=== PATIENT | male | born 1955 | race Caucasian/White ===

== ENCOUNTER → 2017-04-30 | Outpatient (CLI) | payer BC ==
[~2017-04-30] MED LIST: ASPI-113 PO; CALCTAB7 PO; CHOL100010 PO; CHOL1TAB46 PO; DOCU-94 PO; LISI-461 PO; LPR25 PO; LSN20 PO; NAPR-1169 PO; SERT50TA PO; SIMV80TA2 PO; TYLOTC500 PO; ZOLP5TAB PO
[2017-04-30 12:59] LABS: BASO % 0.8 %; BASO ABS # 0.07 K/uL (0-0.2); COMPLETE YES; EOS % 1.9 %; HEMATOCRIT 45.6 % (42-52); IG% 0.5 %; LYMPH % 24.9 %; MEAN CELL VOLUME 90.5 fL (80-100); MEAN CORPUSCULAR HEMOGLOBIN 30.8 pg (25-34); MEAN PLATELET VOLUME 10.3 fL (7.4-10.4); MONO % 7.1 %; NEUT % 64.8 %; PLATELET COUNT 261 K/uL (130-400); RED BLOOD COUNT 5.04 M/uL (4.7-6.1); WHITE BLOOD COUNT 8.45 K/uL (4.8-10.8)
[2017-04-30 15:42] LABS: CALCIUM 9.4 mg/dl (8.5-10.1)
[2017-04-30 15:43] LABS: ALT/SGPT 45 U/L (12-78); AST/SGOT 28 U/L (15-37); BLOOD UREA NITROGEN 20 mg/dl (7-18); BUN/CREATININE RATIO 13.9 (10-20); CARBON DIOXIDE 24 mmol/L (21-32); CHLORIDE 107 mmol/L (98-107); CHOLESTEROL 167 mg/dl (0-200); GLUCOSE 85 mg/dl (70-99); POTASSIUM 4.2 mmol/L (3.5-5.1); SODIUM 138 mmol/L (136-145); TRIGLYCERIDES 245 mg/dl (0-150); VERY LOW DENSITY LIPOPROT CALC 49 mg/dl
[2017-04-30 15:46] LABS: ALB/GLOB RATIO 1.1 (0.9-2); ALKALINE PHOSPHATASE 63 U/L (45-117); CHOLESTEROL/HDL RATIO 3.9; HDL CHOLESTEROL 43 mg/dl
== END | disposition home or self-care (01) ==
LOC: C.LABSPEC 12:20
PROVIDERS: ATTEND Internal Medicine
DX: I25.10 Atherosclerotic heart disease of native coronary artery without angina pectoris (principal); E78.5 Hyperlipidemia, unspecified; I10 Essential (primary) hypertension; E55.9 Vitamin D deficiency, unspecified

== ENCOUNTER → 2017-11-12 | Day surgery (SDC) | payer BC ==
[2017-11-03 08:25] VITALS: Ht 180.3 cm; Wt 97.7 kg
--- NOTE | 2017-11-08 22:05 | History and Physical ---
History & Physical Date of Service Nov 08, 2017. History & Physical ADMISSION DATE: 11/12/2017. Scheduled for left cataract surgery as an outpatient CHIEF COMPLAINT: 61-year-old male scheduled to undergo a left cataract surgery in the surgical center on 11/12/2060 PRESENT ILLNESS: patient with multiple medical problems including coronary artery disease, arterial hypertension, hyperlipidemia, osteoporosis, vitamin D deficiency. He has been diagnosed with cataract in the left eye. He has had a right cataract surgery in the past. Overall he is doing well. He denied any headache. No dizziness. No lightheadedness. Decreased vision left eye. No earache sore throat or neck pain. Denied any chest pain pressure or tightness. No shortness of breath. No cough. He still smokes a few cigarettes a day maybe 3 or 4 cigarettes every day. No abdominal pain no nausea no vomiting. no problems with his bowel movements. No problem urinating. No pain in his back or extremities. No ankle edema. PAST MEDICAL HISTORY: * wisdom teeth extraction in the remote past * Coronary artery disease. He had an inferolateral myocardial infarction in October of 2009. Cardiac catheterization showed 100% occlusion of his obtuse marginal artery. The thrombus was aspirated. A bare metal stent was placed. His cardiac status has been stable * Arterial hypertension. Long-standing. Treated. First diagnosed approximately 2006. * Hypercholesterolemia. Long-standing. Treated. * Degenerative disc disease of the lumbar spine. He presented with a right sciatica. He was diagnosed with a herniated L5-S1 disc. He did see Dr. Gaytan. No surgery was indicated. He did receive epidural injections * Fracture of the right distal femur after a fall on 10/27/2002 * Diverticulosis with perforation in October of 2012. He was in a septic shock. Acute renal failure. Transferrin to [facility]. Had surgery. Had colostomy which was later on taking down * Arthroscopic surgery left knee in July of 2014. He had chondromalacia and insufficiency fracture of the distal femur. * Osteoporosis * Severe vitamin D deficiency SOCIAL HISTORY: he is . No children. He smoked one pack per day for about 30 years. He stopped when he had his myocardial infarction. But again he started smoking a few cigarettes per day. Occasional alcoholic beverage. He does drink coffee but not excessively. No drug use. He is retired. 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 FAMILY HISTORY: His father age 76 had Parkinson's disease and arterial hypertension. His mother in her 70s. He has one brother. ALLERGIES: Intolerance to codeine with gastrointestinal upset CURRENT MEDICATIONS: * lisinopril 10 mg daily * Metoprolol tartrate 25 mg twice a day * Aspirin 325 mg daily * Lipitor 80 mg daily * Sertraline 50 mg daily * Vitamin D 5000 international unit daily * Ambien 5 mg if needed for insomnia * Colace if needed for constipation REVIEW OF SYSTEMS: as noted above PHYSICAL EXAMINATION: GENERAL : Well developed. Well nourished. No acute distress.weight 216.8 pounds , height 71.5 inches, BMI 29.82. VITAL SIGNS : Blood Pressure : 126/70, pulse 72, temperature 97.6. SKIN : Warm and dry. No rash.Multiple skin tags HEENT :He wears glasses. He is supposed to right cataract surgery. Scheduled for left cataract surgery NECK : Supple. No adenopathy. No thyromegaly. No JVD. Normal carotid pulses. No carotid bruit. CHEST : Normal HEART: Regular heart sounds without any murmur rub or gallop. PMI not displaced. LUNGS: Clear. Normal breath sounds. ABDOMEN: Soft nontender. No organomegaly or masses. Good bowel sounds.surgical scars BACK: No spine or CVA tenderness. BACK: No spine or CVA tenderness. EXTREMITIES : No edema clubbing or cyanosis. No joint or muscle tenderness. absent left dorsalis pedis pulse. Decreased right dorsalis pedis pulse. Excellent posterior tibialis pulses NEUROLOGICAL EXAMINATION: Alert and oriented. No deficit. ASSESSMENT: * cataract left eye. Scheduled for surgery * Coronary artery disease. Stable * Arterial hypertension * Hyperlipidemia * Osteoporosis * Vitamin D deficiency PLAN: he is doing quite well. His cardiac status is stable. His blood pressure is under control. He has no limitations. I do not see any contraindication for his anticipated cataract surgery as scheduled
[~2017-11-12] VITALS: Ht 180.3 cm; Wt 97.7 kg
[~2017-11-12] MED LIST changes: +500ML BSS 0.3ML EPI 1:1000PF IRRIG ONE; +ACETAMINOPHEN 325 MG TAB PO PRN; +AMVISC PLUS 0.8ML SYRINGE INT OCU ONE; +ATROPINE SULFATE 0.1 MG/ML 5ML SYR IV PRN; +BSS FLUSH ONE; -CALCTAB7 PO; -CHOL100010 PO; +EpHEDrine SULFATE INJ 50 MG/ML AMP IV PRN; +EpINEphrine INJ 1MG/ML AMP 1 MG/ML AMP ONE; +LACTATED RINGER'S 1000ML 500 ML IV SCH; +LIDOCAINE 3.5% OPH GEL PER APPLICATION CHARGE ONE; +LIDOCAINE HCL 1% MPF 2 ML VIAL ONE; -LSN20 PO; +MIDAZOLAM HCL 1 MG/ML 2ML VIAL ONE; +OCUCOAT 1 ML SOLN IO ONE; +ONDANSETRON INJ 2 MG/ML 2 ML VIAL IV PRN; +POVIDONE-IODINE OP SOLN 30 ML BTL ONE; +PROPARACAINE 0.5% OP SOLN PER DROP CHARGE OPL SCH; +TOBRAMYCIN/DEXAMETHASONE OPH OINT PER APPLN CHARGE ONE; -TYLOTC500 PO
[2017-11-12] MEDS: PHENYLEPHRINE HCL 2.5% OP SOLN PER DROP CHARGE OPL SCH ×2 (10:12→10:15)
[2017-11-12] MEDS: TROPICAMIDE 1% OP SOLN PER DROP CHARGE OPL SCH ×2 (10:12→10:16)
[2017-11-12] MEDS: CYCLOPENTOLATE HCL 1% OP SOLN PER DROP CHARGE OPL SCH ×2 (10:13→10:17)
[2017-11-12] MEDS: KETOROLAC 0.5% OP SOLN PER DROP CHARGE OPL SCH ×2 (10:14→10:17)
[2017-11-12] MEDS: GATIFLOXACIN OP SOLN PER DROP CHARGE OPL SCH ×2 (10:14→10:18)
--- NOTE | 2017-11-12 10:20 | History & Physical Bridge - SC ---
H&P Re-Evaluation Bridge Note: I have examined the patient, reviewed the History & Physical and in the interval since the performance of the History & Physical I have noted the following changes of clinical significance: Diagnosis: Left Cataract Procedure: Left Cataract Removal with Lens Implant No changes noted
--- NOTE | 2017-11-12 11:14 | Discharge Instructions-SurgCtr ---
Discharge Instructions Date of Service Nov 12, 2017. Visit Reason for Visit: Cataract Left Eye Discharge Discharge Diagnosis / Problem: cataract Discharge Goals Goal(s): Improve function Activity Recommendations Activity Limitations: per Instructions/Follow-up section Anesthesia . Post Anesthesia Instructions: If you have had General Anesthesia or IV Sedation: * Do not drive today. * Resume driving when surgeon permits. * Do not make important decisions or sign legal documents today. * Call surgeon for: 1. Temperature elevations greater than 101 degrees F. 2. Uncontrollable pain. 3. Excessive bleeding. 4. Persistent nausea and vomiting. 5. Medication intolerance (nausea, vomiting or rash). * For nausea and vomiting use only clear liquids such as: tea, soda, bouillon until nausea subsides, then gradually increase diet as tolerated. * If you have any concerns or questions, call your surgeon's office. If physician is unavailable and it is an emergency, call 911 or go to the nearest emergency room. . Diet Recommendations Home Diet: resume previous diet Procedures Procedures Performed: Left Cataract Phacoemulsification With Intraocular Lens Implant Pending Studies Studies pending at discharge: no Medical Emergencies . Who to Call and When: Medical Emergencies: If at any time you feel your situation is an emergency, please call 911 immediately. . Non-Emergent Contact Non-Emergency issues call your: [employer] . . "Provider Documentation" section prepared by Kobe Reagan. .
--- NOTE | 2017-11-12 11:15 | [facility] Operative Report ---
Operative Report Date of Service Nov 12, 2017. Operative Report 1. PREOPERATIVE DIAGNOSIS: Cataract of the left eye. 2. POSTOPERATIVE DIAGNOSIS: Same. 3. PROCEDURE: Phacoemulsification with intraocular lens implantation of the left eye. SURGEON: Dr. Kobe Reagan. ANESTHESIA: Topical Lidocaine gel, 1% Non- Preserved intracameral Lidocaine, and monitored intravenous sedation. INDICATIONS FOR THE PROCEDURE: The patient is a 61 - year-old male with a history of cataract of the left eye causing significant visual impairment. The details of the proposed procedure were explained to the patient who asked appropriate questions and following discussion of all risks, benefits and alternatives agreed to have the procedure done. 4. OPERATION AND FINDINGS: DESCRIPTION OF PROCEDURE: After informed consent was obtained, the patient was brought to the Operating Room at the [facility]. The patient was placed in a supine position and then the left eye was prepped and draped in the usual sterile fashion for intraocular surgery. A drop of topical Lidocaine gel was placed in the operative eye. A wire lid speculum was then placed in the fornices. A corneal paracentesis was then created temporally. The Non-Preserved Lidocaine was then instilled into the anterior chamber. The anterior chamber was then pressurized with viscoelastic. A 2.0 mm clear corneal incision was then created temporally. A cystotome was inserted into the anterior chamber and used to create a tear in the anterior lens capsule. This capsular tear was then used to create a small flap and the flap was dragged in a counterclockwise direction in order to create a continuous curvilinear capsulorrhexis. Hydrodissection was accomplished with balanced salt solution. Phacoemulsification of the lens nucleus was then performed in a standard [id number] technique. The phaco time was 11 seconds with an average power of 12 %. The remaining cortical material was removed using irrigation aspiration. The capsular bag was then filled with viscoelastic. A B[employer]ch [employer] Lomb MI60L +15.0 diopters lens was then loaded into the injector and injected into the capsular bag. The remaining viscoelastic was removed with the irrigation aspiration handpiece. The wound was hydrated and then checked and found to be watertight. The intraocular pressure was checked and found to be adequate. The wire lid speculum was removed and the patient's face was cleaned and dried. TobraDex ointment was placed in the inferior fornix. The patient was discharged to the Recovery Room having tolerated the procedure well. There were no complications. The patient will be seen tomorrow in the office for follow-up. I attest to the content of the Intraoperative Record and any orders documented therein. Any exceptions are noted below.
--- NOTE | 2017-11-12 11:34 | Anesthesia Progress Nt - [facility] ---
Anesthesia Post Op Note Date & Time Nov 12, 2017 at 11:34 Vital Signs Pain Intensity: 0 Vital Signs Past 12 Hours Date Time Temp Pulse Resp B/P (MAP) Pulse Ox O2 Delivery O2 Flow Rate FiO2 11/12/17 11:17 36.4 54 16 141/95 (110) 95 Room Air 11/12/17 10:00 36.7 53 20 118/83 (95) 96 Room Air Notes Mental Status: alert / awake / arousable, participated in evaluation Pt Amnestic to Procedure: Yes Nausea / Vomiting: adequately controlled Pain: adequately controlled Airway Patency, RR, SpO2: stable & adequate BP & HR: stable & adequate Hydration State: stable & adequate Anesthetic Complications: no major complications apparent
[2017-11-12 11:52] VITALS: BP 144/84; PULSE 61; TEMP 36.6; O2SAT 65
== END | disposition home or self-care (01) ==
LOC: X.SURG 09:40
PROVIDERS: ATTEND Ophthalmology
DX: H26.9 Unspecified cataract (principal); M51.36 Other intervertebral disc degeneration, lumbar region; I25.10 Atherosclerotic heart disease of native coronary artery without angina pectoris; I10 Essential (primary) hypertension; E78.5 Hyperlipidemia, unspecified; E78.00 Pure hypercholesterolemia, unspecified; M81.0 Age-related osteoporosis without current pathological fracture; E55.9 Vitamin D deficiency, unspecified; I25.2 Old myocardial infarction; F17.200 Nicotine dependence, unspecified, uncomplicated; Z82.49 Family history of ischemic heart disease and other diseases of the circulatory system; Z79.82 Long term (current) use of aspirin; Z79.899 Other long term (current) drug therapy

== ENCOUNTER → 2018-03-22 | Outpatient (CLI) | payer BC ==
[~2018-03-22] MED LIST changes: -500ML BSS 0.3ML EPI 1:1000PF IRRIG ONE; -ACETAMINOPHEN 325 MG TAB PO PRN; -AMVISC PLUS 0.8ML SYRINGE INT OCU ONE; -ATROPINE SULFATE 0.1 MG/ML 5ML SYR IV PRN; -BSS FLUSH ONE; -EpHEDrine SULFATE INJ 50 MG/ML AMP IV PRN; -EpINEphrine INJ 1MG/ML AMP 1 MG/ML AMP ONE; -LACTATED RINGER'S 1000ML 500 ML IV SCH; -LIDOCAINE 3.5% OPH GEL PER APPLICATION CHARGE ONE; -LIDOCAINE HCL 1% MPF 2 ML VIAL ONE; -MIDAZOLAM HCL 1 MG/ML 2ML VIAL ONE; -OCUCOAT 1 ML SOLN IO ONE; -ONDANSETRON INJ 2 MG/ML 2 ML VIAL IV PRN; -POVIDONE-IODINE OP SOLN 30 ML BTL ONE; -PROPARACAINE 0.5% OP SOLN PER DROP CHARGE OPL SCH; -TOBRAMYCIN/DEXAMETHASONE OPH OINT PER APPLN CHARGE ONE
== END | disposition home or self-care (01) ==
LOC: C.LABSPEC 17:23
PROVIDERS: ATTEND Internal Medicine
DX: L02.212 Cutaneous abscess of back [any part, except buttock and flank] (principal)

== ENCOUNTER 2019-02-02 08:27 | Inpatient (IN) ==
[2019-02-02] MEDS ORDERED: LACTATED RINGER'S 1,000 ML IV SCH (08:45)
[2019-02-02 08:50] LABS: Basophils # (auto) 0.05 K/uL (0-0.2); Basophils % (auto) 0.7 %; Eosinophils # (auto) 0.08 K/uL (0-0.5); Eosinophils % (auto) 1.2 %; Hematocrit (blood only) 47.5 % (42-52); Hemoglobin 16.2 g/dL (14.0-18.0); Immature Granulocytes # (auto) 0.05 K/uL (0.00-0.02); Immature Granulocytes % (auto) 0.7 %; Lymphocytes # (auto) 1.67 K/uL (1.2-3.4); Lymphocytes % (auto) 24.9 %; Mean Corpuscular Hgb Conc 34.1 g/dL (32-36); Mean Corpuscular Volume 90.3 fL (80-100); Mean Platelet Volume 9.8 fL (7.4-10.4); Monocytes # (auto) 0.53 K/uL (0.11-0.59); Monocytes % (auto) 7.9 %; Neutrophils # (auto) 4.33 K/uL (1.4-6.5); Neutrophils % (auto) 64.6 %; Platelet Count 204 K/uL (130-400); RDW Coefficient of Variation 13.3 % (11.5-14.5); RDW Standard Deviation 43.8 fL (36.4-46.3); Red Blood Count 5.26 M/uL (4.7-6.1); White Blood Count 6.71 K/uL (4.8-10.8)
[2019-02-02] MEDS: HYDROmorphone INJ 0.5 MG/0.5 ML SYR IV PRN ×6 (08:51→22:45)
[2019-02-02 09:06] LABS: INR 1.1 (0.9-1.1); Partial Thromboplastin Time 26.6 Seconds (21.0-31.0); Prothrombin Time 11.4 Seconds (9.0-12.0)
[2019-02-02 09:08] LABS: BUN Creatinine Ratio 15.1 (10-20); Calcium 9.5 mg/dl (8.5-10.1); Creatinine Clr Calc Pharmacy 71.8 ml/min; Est GFR (African American) 67.5; Est GFR (Non-African American) 58.2; Potassium 4.1 mmol/L (3.5-5.1)
--- NOTE | 2019-02-02 09:12 | XRay Report ---
XR chest 1V portable CLINICAL HISTORY: pre op COMPARISON STUDY: 11/15/2012 FINDINGS: The bones soft tissues and hemidiaphragms are normal. The cardiomediastinal silhouette is n ormal. The lungs are clear. The pulmonary vasculature is normal. IMPRESSION: Negative chest. The above report was generated using voice recognition software. It may contain grammatical, syntax or spelling errors. Electronically signed by: Semaj Gutierrez M.D. 02/02/2019 9:11 AM
--- NOTE | 2019-02-02 09:14 | XRay Report ---
XR hip RT 2-3V w pelvis CLINICAL HISTORY: s/p fall, prior femur frx trauma. Pain. COMPARISON: 10/27/2012 DISCUSSION: Probable intertrochanteric fracture right hip. Potential linear extension to the proximal femoral shaft. No evidence of dislocation or acetabular protrusion. There is no evidence for soft ti ssue swelling. IMPRESSION: Intertrochanteric fracture right hip with probable extension to the proximal femoral shaf t. No evidence for dislocation or acetabular protrusion. The above report was generated using voice recognition software. It may contain grammatical, syntax or spelling errors. Electronically signed by: Semaj Gutierrez M.D. 02/02/2019 9:12 AM
--- NOTE | 2019-02-02 10:09 | Emergency Department Note ---
Entered by Humaira Alvarez acting as a scribe for History of Present Illness General Chief complaint: Fall Source: patient History of Present Illness Provider complaint: fall Onset (ago): hour(s) (0730 this morning) Location: lower extremity and right Quality: + other (fall) Associated symptoms: + other (right hip pain); no syncope The patient is a 63 year old white male w/ PMHx of CAD, a heart attack, a colostomy, and HTN who presents to the ED w/ CC of a fall occurring about 0730 this morning. The patient states that he slipped on ice outside on ground level. He states that he fell on his right side and reports having hip pain. He reports a history of a broken right femur 6 years ago. The patient states that he is able to move his toes. He denies hitting his head or passing out. The patient reports a history of a heart attack 10 years ago and had 1 stent placed. The patient states that he takes Aspirin and that he took it yesterday but not this morning. The patient states that he smokes. Home Medications Home Medications Medication Instructions Recorded Confirmed Type sertraline 50 mg PO QPM #0 tab 10/27/12 02/02/19 History aspirin 325 mg PO DAILY #0 tab 11/15/12 02/02/19 History metoprolol tartrate 25 mg PO BID #0 10/11/14 02/02/19 History naproxen 500 mg PO BID PRN #0 tab 10/11/14 02/02/19 History zolpidem 5 mg PO HS PRN #0 tab 10/11/14 02/02/19 History cholecalciferol (vitamin D3) 5,000 unit PO DAILY #0 11/03/17 02/02/19 History lisinopril 10 mg PO DAILY #0 11/03/17 02/02/19 History atorvastatin 80 mg PO HS 02/02/19 02/02/19 History Allergies Allergy/AdvReac Type Severity Reaction Status Date / Time No Known Allergies Allergy Verified 02/02/19 08:48 Past Med/Surg History Medical History Tobacco use Hx of fracture of femur Hx pulmonary embolism HLD (hyperlipidemia) HTN (hypertension) CAD (coronary artery disease) Closed intertrochanteric fracture of right femur (Acute) CAD (coronary artery disease) (Chronic) HTN (hypertension) (Chronic) Surgical History Hx of resection of small bowel Social History Preferred Language: Danish Communication Ability: Effective Candy Maker Required: No Beliefs That Will Affect Care: None Current Living Situation: Spouse current occupational status: retired Other Information That Helps Us Care for You: No Feels Safe at Home: Yes Safety Concerns: Feels Safe At This Time Smoking Status: Current every day smoker Hx Alcohol Use: No Hx Substance Use: No Review of Systems See HPI for pertinent positives & negatives. and A total of 10 systems reviewed and were otherwise negative Physical Exam Vital Signs Vital Signs - 24 hr 02/02/19 08:32 02/02/19 09:17 02/02/19 10:49 Temperature 36.7 C Temperature Source Oral Sepsis Recent Fever Within 48 Hours No Sepsis New/Unexplained Change in Mental Status No Sepsis Action Taken by Nursing No Action Required Pulse Rate 77 Pulse Rate [Left Finger] 65 66 Respiratory Rate 18 16 18 Blood Pressure 148/96 H Blood Pressure [Left Arm] 114/80 134/90 Blood Pressure Mean 113 Blood Pressure Mean [Left Arm] 91 104 Pulse Oximetry 97 92 96 Oxygen Delivery Method Room Air Room Air Room Air 02/02/19 12:04 Temperature Temperature Source Sepsis Recent Fever Within 48 Hours Sepsis New/Unexplained Change in Mental Status Sepsis Action Taken by Nursing Pulse Rate 75 Pulse Rate [Left Finger] Respiratory Rate Blood Pressure Blood Pressure [Left Arm] Blood Pressure Mean Blood Pressure Mean [Left Arm] Pulse Oximetry Oxygen Delivery Method GENERAL: Well appearing, well nourished, NAD, non-toxic. Wearing glasses. EYE EXAM: Normal conjunctiva. PERRL, no anisocoria and EOM's grossly intact w/o pain OROPHARYNX: Moist mucus membranes. HEAD: No deformity or tenderness to palpation. NECK: Supple, no nuchal rigidity, no adenopathy, non-tender. No signs of meningismus. LUNGS: Clear to auscultation bilaterally. Normal chest wall mechanics. HEART: Normal sinus rhythm, no MRG. CHEST: No deformity or tenderness to palpation. ABDOMEN: Abdomen soft, non-tender, no masses, no rebound or guarding. BACK: No CVA TTP. SKIN: No rashes and no bruising. UPPER EXTREMITIES: Upper extremities are grossly normal. No deformity or tenderness to palpation to the bilateral upper extremities. LOWER EXTREMITIES: No pitting edema. No calf pain. There is pain to the lateral aspect of the right hip. Unable to strengthen. SLIT distally. The hip is held in flexion. No deformity or tenderness to palpation of the left lower extremity. NEURO EXAM: AOx3, GCS 15, no gross deficit, follows commands. Moves all 4 extremities on command w/o issue Course 0836: Past medical records reviewed. The patient was evaluated in room A10, and a complete history and physical examination were performed. 0956: I discussed the patient's case with Dr. Gomez who said to admit the patient to Medicine and that he will probably go to the OR tomorrow at noon. 1002: I discussed the patient's case with Janice Quinonez who will evaluate the patient for further management. 1010: I updated the patient who verbalized agreement and understanding of the treatment plan. Consultations Consultation #1: Dr. Gomez Time: 09:56 Consultation #2: Janice Quinonez Time: 10:02 Administered Medications Discontinued Medications Hydromorphone HCl (Dilaudid) 0.5 mg IV Q20M PRN PRN Reason: Severe Pain (Rating 7,8,9,10) Stop: 02/16/19 08:40 Last Admin: 02/02/19 09:15 Dose: 0.5 mg Documented by: [id number] Admin: 02/02/19 08:51 Dose: 0.5 mg Documented by: [id number] Lactated Ringer's (Lr) 1,000 mls @ 150 mls/hr IV .Q6H40M CASTILLO Stop: 03/04/19 08:44 Last Admin: 02/02/19 08:51 Dose: 150 mls/hr Documented by: [id number] Medical Decision Making Medical Records Attestation: I reviewed the patient's medical records. Home Medications Current Medication List: was personally reviewed by me Laboratory Data Attestation: I reviewed the patient's lab results. Result diagrams: 02/02/19 08:39 02/02/19 08:39 Lab Results 02/02/19 02/02/19 02/02/19 Range/Units 08:39 08:39 08:39 WBC 6.71 (4.8-10.8) K/uL RBC 5.26 (4.7-6.1) M/uL Hgb 16.2 (14.0-18.0) g/dL Hct 47.5 (42-52) % MCV 90.3 (80-100) fL MCH 30.8 (25-34) pg MCHC 34.1 (32-36) g/dL RDW Std Deviation 43.8 (36.4-46.3) fL RDW Coeff of Emmett 13.3 (11.5-14.5) % Plt Count 204 (130-400) K/uL MPV 9.8 (7.4-10.4) fL Immature Gran % (Auto) 0.7 % Neut % (Auto) 64.6 % Lymph % (Auto) 24.9 % Harmon % (Auto) 7.9 % Eos % (Auto) 1.2 % Baso % (Auto) 0.7 % Immature Gran # (Auto) 0.05 H (0.00-0.02) K/uL Neut # (Auto) 4.33 (1.4-6.5) K/uL Lymph # (Auto) 1.67 (1.2-3.4) K/uL Harmon # (Auto) 0.53 (0.11-0.59) K/uL Eos # (Auto) 0.08 (0-0.5) K/uL Baso # (Auto) 0.05 (0-0.2) K/uL PT 11.4 (9.0-12.0) Seconds INR 1.1 (0.9-1.1) APTT 26.6 (21.0-31.0) Seconds PTT Ratio 1.0 Sodium 138 (136-145) mmol/L Potassium 4.1 (3.5-5.1) mmol/L Chloride 105 (98-107) mmol/L Carbon Dioxide 25 (21-32) mmol/L Anion Gap 7.0 (3-11) BUN 20 H (7-18) mg/dl Creatinine 1.29 (0.6-1.4) mg/dl Est Cr Clr Drug Dosing 71.8 ml/min Est GFR ( Amer) 67.5 Est GFR (Non-Af Amer) 58.2 BUN/Creatinine Ratio 15.1 (10-20) Glucose 111 H (70-99) mg/dl Calcium 9.5 (8.5-10.1) mg/dl Blood Type Antibody Screen 02/02/19 Range/Units 09:04 WBC (4.8-10.8) K/uL RBC (4.7-6.1) M/uL Hgb (14.0-18.0) g/dL Hct (42-52) % MCV (80-100) fL MCH (25-34) pg MCHC (32-36) g/dL RDW Std Deviation (36.4-46.3) fL RDW Coeff of Emmett (11.5-14.5) % Plt Count (130-400) K/uL MPV (7.4-10.4) fL Immature Gran % (Auto) % Neut % (Auto) % Lymph % (Auto) % Harmon % (Auto) % Eos % (Auto) % Baso % (Auto) % Immature Gran # (Auto) (0.00-0.02) K/uL Neut # (Auto) (1.4-6.5) K/uL Lymph # (Auto) (1.2-3.4) K/uL Harmon # (Auto) (0.11-0.59) K/uL Eos # (Auto) (0-0.5) K/uL Baso # (Auto) (0-0.2) K/uL PT (9.0-12.0) Seconds INR (0.9-1.1) APTT (21.0-31.0) Seconds PTT Ratio Sodium (136-145) mmol/L Potassium (3.5-5.1) mmol/L Chloride (98-107) mmol/L Carbon Dioxide (21-32) mmol/L Anion Gap (3-11) BUN (7-18) mg/dl Creatinine (0.6-1.4) mg/dl Est Cr Clr Drug Dosing ml/min Est GFR ( Amer) Est GFR (Non-Af Amer) BUN/Creatinine Ratio (10-20) Glucose (70-99) mg/dl Calcium (8.5-10.1) mg/dl Blood Type A Negative Antibody Screen NEGATIVE Imaging Data Radiologist's Impression: Radiology results as stated below per my review and the radiologist's interpretation: XR hip RT 2-3V w pelvis CLINICAL HISTORY: s/p fall, prior femur frx trauma. Pain. COMPARISON: 10/27/2012 DISCUSSION: Probable intertrochanteric fracture right hip. Potential linear extension to the proximal femoral shaft. No evidence of dislocation or a cetabular protrusion. There is no evidence for soft tissue swelling. IMPRESSION: Intertrochanteric fracture right hip with probable extension to the proximal femoral shaft. No evidence for dislocation or acetabular protrusion. The above report was generated using voice recognition software. It may contain grammatical, syntax or spelling errors. Electronically signed by: Semaj Gutierrez M.D. 02/02/2019 9:12 AM XR chest 1V portable CLINICAL HISTORY: pre op COMPARISON STUDY: 11/15/2012 FINDINGS: The bones soft tissues and hemidiaphragms are normal. The car diomediastinal silhouette is normal. The lungs are clear. The pulmonary vasculature is normal. IMPRESSION: Negative chest. The above report was generated using voice recognition software. It may contain grammatical, syntax or spelling errors. Electronically signed by: Semaj Gutierrez M.D. 02/02/2019 9:11 AM ECG Data Attestation: I personally reviewed and interpreted this ECG as follows: Indication: other (trauma) Rate (beats per minute): 63 Rhythm: normal sinus Findings: + other (normal axis, normal intervals) and + T-wave inversion (in aVL) Blood Pressure Blood Pressure Findings: Normal blood pressure MDM Narrative The patient is a 63 year old white male w/ PMHx of CAD, a heart attack, a colostomy, and HTN who presents to the ED w/ CC of a fall occurring about 0730 this morning. Differential diagnosis: Etiologies such as fracture, dislocation, neurovascular compromise, compartment syndrome, soft tissue injury, as well as others were entertained. Patient was seen and evaluated the bedside. The patient did suffer medical fall approximate 1 hour prior to arrival. The patient does have a known history of CAD does take a full dose aspirin. The patient did fall somewhat to his right side. On exam the patient is held in flexion but has normal sensation distally. There is no other trauma. No pain to the head or neck area no deformity. No pain to the chest or abdomen. Patient did a blood work completed along with x-rays. The patient's x-rays show a femur fracture. Orthopedics was consulted with Dr. Moreira. Patient's blood work unremarkable. EKG does show T WI in aVL. Patient did not strike head or neck. Patient does have a right-sided intertrochanteric fracture. I did speak the on-call orthopedist who stated the patient would be scheduled for the OR tomorrow at noon. Subsequently, the hospitalist was paged. I did speak with the on-call physician assistant store manager operations who agreed to further evaluate treat the patient. The patient was admitted to the medicine service. Impression & Plan Closed intertrochanteric fracture of right femur, Fall, Encounter for smoking cessation counseling Discharge Plan Visit Data *Final* Discharge Date/Time: 02/02/19 11:16 Chief Complaint: Fall ED Provider: Phill Palencia Discharge Problem: Closed intertrochanteric fracture of right femur, Fall, Encounter for smoking cessation counseling Patient Disposition: Admitted As Inpatient Discharge Instructions Interventions: ED Discharge Assessment Last Done: 02/02/19 11:16 The scribe's documentation has been prepared under my direction and personally reviewed by me in its entirety. I confirm that the note above accurately reflects all work, treatment, procedures, and medical decision making performed by me.
--- NOTE | 2019-02-02 10:39 | History & Physical Report ---
Date of Service February 02, 2019 Assessment & Plan (1) Status post closed fracture of right femur: - Admit to med surg with tele - Pain management, bowel regimen, dvt ppx ordered. - Consult orthopedics, Dr. Anderson - plans on Surgery on 02/03/19 - Last oral intake was breakfast with coffee, allow diet for now, NPO after midnight. Pt had LR IV in the ER. - Follow am CBC, coags - Cardiac Risk index of 0.9% (2) CAD (coronary artery disease): - Hx of care metal stent to the Left circumflex s/p STEMI in 2008. Follows with [facility] cardiology - Continue asa 325 mg daily, lisinopril 10 mg daily, metoprolol tartrate 25 mg PO BID, atorvastatin 80 mg HS - Cardiac risk low for surgical procedure - Encourage cessation of tobacco smoking. - No formal exercise program. (3) HTN (hypertension): - Continue antihypertensives. (4) HLD (hyperlipidemia): - Cont statin therapy as above. (5) Hx of fracture of femur: - 6 yrs ago sustained R femoral fx, repaired. (6) Hx pulmonary embolism: - 6 yrs ago following initial R femoral fracture. Teds and SCD to nonaffected leg. (7) Hx of resection of small bowel: - 6 yrs ago s/p femoral fracture. Stable. (8) Tobacco use: - Smoking currently about 1 ppd since age 17. Encourage cessation. Will order nicotine patch. - Increases risk of osteoporosis with intertrochanteric note as above. (9) DVT prophylaxis: Teds and SCDs to nonaffected leg, no chemical ppx in the setting of surgical procedure. History of Present Illness Chief Complaint: R intertrochanteric hip fracture Primary Care Provider: George Henry MD This is a 63 yo M with PMHx of CAD with stent x 1, HTN, HLD, current tobacco use with 15 cig daily since age 17. Pt also with surgical hx of previous R femoral fracture and fixation, who subsequently suffered a PE and small bowel resection approximately 2-3 wks after initial femoral fracutre 6 years ago. Pt reports mechanical fall after slipping on ice this morning. He denies hitting his head, LOC or preceeding lightheadedness or dizziness. He has been feeling in his normal state otherwise. Pt walks daily with his dogs about 20 minutes, and has no difficulty climbing a flight of stairs. Allergies Allergy/AdvReac Type Severity Reaction Status Date / Time No Known Allergies Allergy Verified 02/02/19 08:48 Home Medications Home Medications Medication Instructions Recorded Confirmed Type sertraline 50 mg PO QPM #0 tab 10/27/12 02/02/19 History aspirin 325 mg PO DAILY #0 tab 11/15/12 02/02/19 History metoprolol tartrate 25 mg PO BID #0 10/11/14 02/02/19 History naproxen 500 mg PO BID PRN #0 tab 10/11/14 02/02/19 History zolpidem 5 mg PO HS PRN #0 tab 10/11/14 02/02/19 History cholecalciferol (vitamin D3) 5,000 unit PO DAILY #0 11/03/17 02/02/19 History lisinopril 10 mg PO DAILY #0 11/03/17 02/02/19 History atorvastatin 80 mg PO HS 02/02/19 02/02/19 History Past Med/Surg History Medical History Tobacco use Hx of fracture of femur Hx pulmonary embolism HLD (hyperlipidemia) HTN (hypertension) CAD (coronary artery disease) Closed intertrochanteric fracture of right femur (Acute) CAD (coronary artery disease) (Chronic) HTN (hypertension) (Chronic) Surgical History Hx of resection of small bowel Social History Preferred Language: Bhutanese Communication Ability: Effective Network Desktop Support Specialist Required: No Beliefs That Will Affect Care: None Current Living Situation: Spouse current occupational status: retired Other Information That Helps Us Care for You: No Feels Safe at Home: Yes Safety Concerns: Feels Safe At This Time Smoking Status: Current every day smoker Hx Alcohol Use: No Hx Substance Use: No Review of Systems Constitutional: no fever, no chills, no sweats and no fatigue Eyes: no diplopia and no worsening vision Ear, Nose, Mouth, Throat: no dizziness, no nasal discharge, no facial pain and no sore throat Respiratory: no cough, no dyspnea and no wheezing Cardiovascular: no chest pain, no palpitations, no lightheadedness and no syncope Gastrointestinal: no nausea, no vomiting and no constipation no diarrhea Genitourinary (Male): no dysuria, no urinary frequency, no urinary hesitancy and no hematuria Musculoskeletal: + joint pain (R hip improved after pain medication); no back pain, no swelling and no muscle weakness Integumentary: no rash, no lesions and no wounds Neurologic: no gait abnormality, no falls, no numbness, no dizziness and no syncope Psychiatric: no depression and no anxiety Endocrine: no fatigue Physical Exam Vital Signs (Past 24 Hours): Last Vital Signs Temp 36.7 C 02/02/19 08:32 Pulse 65 02/02/19 09:17 Resp 16 02/02/19 09:17 BP 114/80 02/02/19 09:17 Pulse Ox 92 02/02/19 09:17 Physical Exam: General: awake, alert, no apparent distress, +overweight Head: Normocephalic, atraumatic ENT: PERRL, EOMI, no pharyngeal exudate, mucous membranes moist Chest: Clear to auscultation, on room air, no adventitious breath sounds Cardiac: Regular rate and rhythm, no murmur, no JVD, normal peripheral pulses, good capillary refill Abdominal: NABS x 4 quadrants, soft, nontender to palpation, no rebound, guarding or tenderness Extremities: Normal inspection, no peripheral edema or erythema, calfs nontender to palpation Psych: Normal mood and affect Neuro: AAO x 3, strength decreased in the RLE with plantar flexion, sensation intact bilaterally in lower extremities. Otherwise no motor deficits, speech is clear. Results & Data Diagnostic Findings XR hip RT 2-3V w pelvis CLINICAL HISTORY: s/p fall, prior femur frx trauma. Pain. COMPARISON: 10/27/2012 DISCUSSION: Probable intertrochanteric fracture right hip. Potential linear ext ension to the proximal femoral shaft. No evidence of dislocation or acetabular protrusion. There is no evidence for soft tissue swelling. IMPRESSION: Intertrochanteric fracture right hip with probable extension to the proximal femoral shaft. No evidence for dislocation or acetabular protrusion. XR chest 1V portable CLINICAL HISTORY: pre op COMPARISON STUDY: 11/15/2012 FINDINGS: The bones soft tissues and hemidiaphragms are normal. The cardiomediastinal silhouette is normal. The lungs are clear. The pulmonary vasculature is normal. IMPRESSION: Negative chest. ECG Additional Comments: 02-FEB-2019 08:34:22 [facility] Normal sinus rhythm Normal ECG When compared with ECG of 18-AUG-2014 12:06, No significant change was found Vent. rate 63 BPM TX interval 202 ms QRS duration 84 ms QT/QTc 422/431 ms P-R-T axes 68 25 70 Code Status & VTE Plan Code Status Full Code Supervising Physician Co-Signing Physician Notes Pt seen/examined in conjunction with SHWETA Armas. Orders and plan of admission formulated with SHWETA. 63 y/o M Hx CAD/stent, HTN, HLD, avid smoker. Suffered a PE following surgery for a hip fracture previously. Suffered a mechanical fall on ice prior to arrival and sustained a R intertroch fracture. OE AAO x 3 S1,2 R CTAB NT, ND No CCE - pulses + No deficits P: Orthopedics consulted. He wlks daily and can ascend stairs without difficulty but does have a CAD histroy and continues to smoke. RCRI is tecnically 0.9% - he can likely proceed to the OR without additional workup. He should be anticoagulated JOHNATHAN after surgery considering hi postop DVT previously Cont Atorvastatin and Metoprolol - hold Lisinopril AM - NPO, IVF, hip admission protocol
[2019-02-02] MEDS ORDERED: NAPROXEN 250 MG TAB PO PRN (11:49)
[2019-02-02] MEDS ORDERED: MoRPHine SULFATE 4 MG/ML 1 ML CARP\\VIAL IV PRN (11:49)
[2019-02-02] MEDS ORDERED: MAGNESIUM HYDROXIDE SUSP 30 ML UDC PO PRN (11:49)
[2019-02-02] MEDS ORDERED: NALOXONE HCL 0.4 MG/1 ML VIAL/CARP IV PRN (11:49)
[2019-02-02] MEDS ORDERED: ZOLPIDEM TARTRATE 5 MG TAB PO PRN (11:49)
[2019-02-02] MEDS ORDERED: SOD PHOSPHATE/SOD BIPHOSPHATE ENEMA 132 ML BTL PR PRN (11:49)
[2019-02-02] MEDS ORDERED: ONDANSETRON INJ 2 MG/ML 2 ML VIAL IV PRN (11:49)
[2019-02-02] MEDS ORDERED: BISACODYL 10 MG SUPP PR PRN (11:49)
[2019-02-02] MEDS ORDERED: CLINDAMYCIN 900 MG in DEXTROSE 5% 100 ML IV SCH (12:35)
[2019-02-02] MEDS: ACETAMINOPHEN 500 MG TAB PO SCH ×2 (12:57→20:25)
[2019-02-02] MEDS: NICOTINE 14 MG/24 HR PATCH TD SCH (13:17)
[2019-02-02] MEDS: OXYCODONE HCL IR 5 MG TAB (IMMEDIATE RELEASE) PO PRN ×2 (13:18→20:26)
--- NOTE | 2019-02-02 14:13 | Anesthesiology Consultation ---
Date of Service February 02, 2019 Assessment & Plan Chart Review Chart Review: Acceptable Risk for Surgery and Patient NOT seen in Pre Admission Testing Consults Requested none ASA ASA4 Proposed Anesthesia Anesthesia Type: General and MAC Spinal Risk / Benefits Reviewed With: PT / POA / Parent / Guardian, Accepts Plan and Informed Consent Obtained History Surgery Operation Date: 02/03/19 13:15 Proposed Procedures p Right Hip Trochanteric Fixation Nail - Tal Anderson, Height/Weight Height: 5 ft 11 in Weight: 106.4 kg Allergies Allergy/AdvReac Type Severity Reaction Status Date / Time No Known Allergies Allergy Verified 02/02/19 08:48 Medications Home Medications Medication Instructions Recorded Confirmed Last Taken sertraline 50 mg PO QPM #0 tab 10/27/12 02/02/19 02/01/19 aspirin 325 mg PO DAILY #0 tab 11/15/12 02/02/19 02/01/19 metoprolol tartrate 25 mg PO BID #0 10/11/14 02/02/19 02/01/19 naproxen 500 mg PO BID PRN #0 tab 10/11/14 02/02/19 Unknown zolpidem 5 mg PO HS PRN #0 tab 10/11/14 02/02/19 Unknown cholecalciferol (vitamin D3) 5,000 unit PO DAILY #0 11/03/17 02/02/19 02/01/19 lisinopril 10 mg PO DAILY #0 11/03/17 02/02/19 02/01/19 atorvastatin 80 mg PO HS 02/02/19 02/02/19 02/01/19 Active Medications Generic Name Dose Route Start Last Admin Trade Name Freq PRN Reason Stop Dose Admin Acetaminophen 1,000 mg 02/02/19 11:49 02/02/19 12:57 Tylenol PO 03/04/19 11:48 1,000 mg Q8H CASTILLO Administration Hydromorphone HCl 0.5 mg 02/02/19 11:49 02/02/19 12:16 Dilaudid IV 02/16/19 11:48 0.5 mg Q2H PRN Administration Pain Nicotine 14 mg 02/02/19 12:30 02/02/19 13:17 Nicoderm Cq TD 03/04/19 12:29 14 mg QAM CASTILLO Administration Oxycodone HCl 5 mg 02/02/19 11:49 02/02/19 13:18 Roxicodone Immediate Rel PO 02/16/19 11:48 5 mg Q4H PRN Administration moderate pain (scale 4-6) Past Medical History Medical History Tobacco use Hx of fracture of femur Hx pulmonary embolism HLD (hyperlipidemia) HTN (hypertension) CAD (coronary artery disease) Closed intertrochanteric fracture of right femur (Acute) CAD (coronary artery disease) (Chronic) HTN (hypertension) (Chronic) STEMI (ST elevation myocardial infarction) 11/07/2009 Past Surgical History Surgical History Hx of resection of small bowel Past Anesthesia History No Hx of Anesthesia Complications and No Family Hx of Anesthesia Complications History of PONV No Motion Sickness Screening History of Motion Sickness: No Social History Smoking Status: Current every day smoker tobacco type: cigarettes Smoking cigarettes per day: 5 Do You Dip or Chew Tobacco: No Hx Alcohol Use: No Hx Substance Use: No Exercise / Class Metabolic Activity III < 4 Walking/Shop/Light housework Physical Exam Vital Signs Last Vital Signs Temp 36.3 C L 02/02/19 12:00 Pulse 75 02/02/19 12:04 Resp 18 02/02/19 12:00 BP 137/80 02/02/19 12:00 Pulse Ox 94 02/02/19 12:00 ENMT Mouth: no dentition abnormality Thyromental Distance: > or= 3.5 Finger Breadths Mallampati Class: II Neck normal visual inspection and trachea midline; neck extension not limited Respiratory normal respiratory effort Auscultation: lungs clear to auscultation bilaterally Cardiovascular Rate/Rhythm: regular rate and regular rhythm Heart Sounds: no murmur Vessels: no carotid bruit Musculoskeletal Spine: normal cervical ROM Neurologic + does not move all extremities (right leg w/ limited movement secondary to right hip Fx) Motor/Sensory: no sensory deficit Psychiatric Orientation: alert and oriented x 3 Testing Electrocardiogram Date: 02/02/19 Findings: + NSR @ (at 63/ min.) Chest X-Ray Date: 02/02/19 Findings: + NAD Stress Test Date: 06/03/13 Type: stress echo Findings: + ischemia and + did not achieved max HR (83% MPHR;10.1 METS) Resting EF: 55 Resting LV Function: normal Resting RWMA: + hypokinetic (LCx regional WM HK) Valvular Disease: no significant valvular disease Cardiac Catheterization Date: 11/07/09 Findings: + RCA (30% DIFFUSE) and + LCX (om1- S/P ptca AND bms TO PROX. PORTION); no LMA Intervention: + BMS placed (TO PROX LCX) and + PCI (TO PROX LCX) lad-DIFFUSE 30-40% DIFFUSE Laboratory Results 02/02/19 08:39 02/02/19 08:39 Blood Type A Negative 02/02/19 09:04 Antibody Screen NEGATIVE 02/02/19 09:04 PT 11.4 Seconds (9.0-12.0) 02/02/19 08:39 INR 1.1 (0.9-1.1) 02/02/19 08:39 APTT 26.6 Seconds (21.0-31.0) 02/02/19 08:39
[2019-02-02] MEDS: LACTATED RINGER'S 1,000 ML IV SCH (16:37)
[2019-02-02 17:51] LABS: Appearance Urine Clear (Clear); Bilirubin Urine Negative (Negative); Blood Urine Negative (Negative); Color Urine Yellow; Glucose Urine UA Negative (Negative); Ketones Urine Negative (Negative); Leukocyte Esterase Urine Negative (Negative); Nitrite Urine Negative (Negative); Protein Urine Negative (Negative); Specific Gravity Urine 1.022 (1.000-1.030); Urobilinogen Urine Negative (Negative)
--- NOTE | 2019-02-02 19:27 | Consultation Report ---
DATE OF CONSULTATION: 02/02/2019 CHIEF COMPLAINT: Right hip pain. HISTORY OF PRESENT ILLNESS: Semaj is delightful. He is 63. He has right hip pain post-trauma. He was in his usual state of health, even this morning he slipped, fell on the ice at home, suffered acute injury and fall to his right hip. He suffered an intertrochanteric fracture of his right hip. PAST MEDICAL HISTORY: Positive for coronary artery disease, hypertension, increased lipids, pulmonary emboli, resection small bowel. SOCIAL HISTORY: He is a smoker. ALLERGIES: Negative. MEDICATIONS: Lisinopril, atorvastatin, vitamin D, naproxen, metoprolol, aspirin, sertraline. REVIEW OF SYSTEMS: He denies any fevers, sweats, chills. Ear, nose and throat negative. Denies chest pain, shortness of breath. No nausea or vomiting. No urgency or frequency. Major positive review is his right hip pain consistent with his fracture. PHYSICAL EXAMINATION: VITAL SIGNS: Temperature 36.7, afebrile. Pulse 80, respirations 16, blood pressure 114/80. HEENT: Pupils react to light and accommodation. Ear, nose and throat clear. CARDIAC: Normal S1, S2. LUNGS: Clear. ABDOMEN: Soft, nontender. EXTREMITIES: His right lower extremity is slightly externally rotated, leg length is appropriate. Skin is intact. No vascular issues. Images demonstrate intertrochanteric fracture of the hip. IMPRESSION: Intertrochanteric fracture of the hip, hypertension, prior deep venous thrombosis, hyperlipidemia, hypertension, coronary artery disease. PLAN: Includes an open reduction internal fixation of his right hip tomorrow on 02/03/2019 at approximately 1:00 p.m.
[2019-02-02] MEDS: ATORVASTATIN 40 MG TAB PO SCH (20:29)
[2019-02-02] MEDS: DOCUSATE SODIUM/SENNA 50/8.6MG TAB PO SCH (20:31)
[2019-02-02] MEDS: SERTRALINE HCL 50 MG TABLET PO SCH (20:32)
[2019-02-02] MEDS: METOPROLOL TARTRATE 25 MG TAB PO SCH (20:33)
[2019-02-03] MEDS: HYDROmorphone INJ 0.5 MG/0.5 ML SYR IV PRN ×4 (02:10→23:41)
[2019-02-03] MEDS: OXYCODONE HCL IR 5 MG TAB (IMMEDIATE RELEASE) PO PRN ×2 (03:13→09:30)
[2019-02-03] MEDS: ACETAMINOPHEN 500 MG TAB PO SCH ×2 (03:13→11:44)
[2019-02-03] MEDS: LACTATED RINGER'S 1,000 ML IV SCH ×2 (04:32→18:43)
[2019-02-03] MEDS ORDERED: CLINDAMYCIN 900 MG in DEXTROSE 5% 100 ML IV SCH (06:00)
[2019-02-03 06:12] LABS: Hematocrit (blood only) 41.5 % (42-52); Mean Corpuscular Hgb Conc 33.7 g/dL (32-36); Mean Corpuscular Volume 91.8 fL (80-100); Mean Platelet Volume 9.6 fL (7.4-10.4); Platelet Count 166 K/uL (130-400); RDW Coefficient of Variation 13.6 % (11.5-14.5); RDW Standard Deviation 45.6 fL (36.4-46.3); Red Blood Count 4.52 M/uL (4.7-6.1); White Blood Count 10.24 K/uL (4.8-10.8)
[2019-02-03 06:23] LABS: INR 1.2 (0.9-1.1); Prothrombin Time 12.3 Seconds (9.0-12.0)
[2019-02-03] MEDS: ASPIRIN 325 MG ECTAB PO SCH (08:17)
[2019-02-03] MEDS: METOPROLOL TARTRATE 25 MG TAB PO SCH ×2 (08:17→21:10)
[2019-02-03] MEDS: NICOTINE 14 MG/24 HR PATCH TD SCH (08:18)
[2019-02-03] MEDS: LISINOPRIL 10 MG TAB PO SCH (08:18)
[2019-02-03] MEDS: BISACODYL 5 MG TABEC PO SCH (08:19)
[2019-02-03] MEDS: CHOLECALCIFEROL 1,000 UNITS TAB PO SCH (08:19)
--- NOTE | 2019-02-03 13:11 | History & Physical Bridge Note ---
Date of Service February 03, 2019 History & Physical Bridge Note I have examined the patient, reviewed the History & Physical and in the interval since the performance of the History & Physical I have noted the following changes of clinical significance: no changes noted
[2019-02-03] MEDS ORDERED: fentaNYL citrate 100 MCG/2 ML VIAL ONE (13:27)
[2019-02-03] MEDS ORDERED: MIDAZOLAM HCL 1 MG/ML 2ML VIAL ONE (13:27)
[2019-02-03] MEDS ORDERED: BUPIVACAINE/EPINEPHRINE 0.5% MPF 1:200,000 30 ML VIAL ONE (13:29)
[2019-02-03] MEDS ORDERED: CEFAZOLIN 2,000 MG/15 ML IV PUSH IV ONE (13:41)
[2019-02-03] MEDS ORDERED: BUPIVACAINE 0.5 % 5 MG/1 ML PF 10ML VIAL ONE (13:42)
[2019-02-03] MEDS ORDERED: CEFAZOLIN 2000MG 2,000 MG/15 ML SYR IV SCH (13:45)
[2019-02-03] MEDS ORDERED: LIDOCAINE HCL 2% 2 ML VIAL/AMP(20MG/ML) INFIL ONE (14:13)
[2019-02-03] MEDS ORDERED: PROPOFOL IV EMULSION 10 MG/ML 20 ML VIAL IV ONE (14:13)
[2019-02-03] MEDS ORDERED: ATROPINE SULFATE 0.1 MG/ML 10ML SYR IV PRN (14:14)
[2019-02-03] MEDS ORDERED: fentaNYL citrate 100 MCG/2 ML VIAL IV PRN (14:14)
[2019-02-03] MEDS ORDERED: ONDANSETRON INJ 2 MG/ML 2 ML VIAL IV PRN ×2 (14:14→17:17)
[2019-02-03] MEDS ORDERED: ePHEDrine sulfate 50 MG/ML AMP IV PRN (14:14)
--- NOTE | 2019-02-03 15:09 | Fluoroscopy Report ---
FL hip RT 2-3V CLINICAL HISTORY: 63 years-old Male presenting with RT HIP TROCHNAIL. TECHNIQUE: 3 fluoroscopic image(s) recorded as part of an intraoperative procedure. COMPARISON: 02/02/2019. FINDINGS/IMPRESSION: There has been interval placement of an intramedullary nail with distal interlocking screw fixation o f the right femoral neck and proximal metadiaphysis. No malalignment. Please see surgical report for further details. Fluoroscopy dosage (mGy): 14.41. Fluoroscopy time: 45.4 seconds. Number or time of high level fluoroscopy (HLF), digital spot, or digital subtraction: 0. Electronically signed by: Fernie Lala M.D. 02/03/2019 3:07 PM
--- NOTE | 2019-02-03 15:14 | Post Operative Brief Note ---
Immediate Post Op Note v1 Date of Surgery February 03, 2019 Pre & Post Diagnosis Operation Date: 02/03/19 13:15 Pre-Op Diagnosis: Right hip fracture Post-Op Diagnosis: Right hip fracture Procedure Operation Date: 02/03/19 13:15 Actual Procedures p Right Hip Trochanteric Fixation Nail(Right) - Tal Anderson DO Surgeon Tal Anderson DO Director Of Managed Services julia Estimated Blood Loss 100 Findings Consistent with Post-Op Diagnosis Complications none Disposition Accompanied Patient To Recovery: Yes Overlapping Procedure I was immediately available: during the entire case.
--- NOTE | 2019-02-03 15:59 | Anesthesiology Progress Note ---
Date of Service February 03, 2019 Anesthesia Post Procedure Vital Signs Vital Signs: Temp Pulse Pulse Pulse Resp BP Pulse Ox 02/03/19 15:50 88 12 122/75 94 02/03/19 15:40 75 13 123/75 94 02/03/19 15:30 81 18 107/74 100 02/03/19 15:20 81 16 100/64 100 02/03/19 15:12 36.2 C L 81 18 114/90 100 02/03/19 12:33 37 C 64 20 118/67 95 02/03/19 11:19 36.9 C 86 18 118/70 91 02/03/19 11:00 60 02/03/19 07:20 37.1 C 94 H 16 118/69 92 02/03/19 04:00 37 C 59 L 16 131/81 92 02/03/19 00:00 80 02/02/19 23:30 37 C 65 16 127/77 96 02/02/19 20:00 37.1 C 83 18 145/88 H 93 02/02/19 16:00 36.4 C L 81 87 18 146/80 H 94 Pain Intensity Right Hip: Pain Intensity: 5 Notes Mental Status: alert / awake / arousable and participated in evaluation Patient Amnestic to Procedure: Yes Nausea / Vomiting: adequately controlled Pain: adequately controlled Airway Patency, RR, SpO2: stable & adequate BP & HR: stable & adequate Hydration State: stable & adequate Neuraxial Anesthesia: was administered and sensory block is resolving Anesthetic Complications: no major complications apparent and Pt Satisfied with anesthetic care
[2019-02-03] MEDS ORDERED: MAGNESIUM HYDROXIDE SUSP 30 ML UDC PO PRN (17:17)
[2019-02-03] MEDS ORDERED: BISACODYL 10 MG SUPP PR PRN (17:17)
--- NOTE | 2019-02-03 18:38 | Hospitalist Progress Note ---
Date of Service February 03, 2019 Assessment & Plan (1) Status post closed fracture of right femur: Postop, PT/OT eval and treat. Check a vitamin D to ensure supplementation is adequate Outpatient evaluation if he is due for repeat DEXA, versus simply empiric treatment for osteoporosis Smoke cessation would be helpful for his bone health (2) CAD (coronary artery disease): - Hx of bare metal stent to the Left circumflex s/p STEMI in 2008. Follows with [facility] cardiology - Continue asa 325 mg daily, lisinopril 10 mg daily, metoprolol tartrate 25 mg PO BID, atorvastatin 80 mg HS -Asymptomatic - Encourage cessation of tobacco smoking. (3) HTN (hypertension): - Continue antihypertensives. Readings reasonable given the situation (4) HLD (hyperlipidemia): - Cont statin therapy as above. Outpatient follow-up (5) Hx of fracture of femur: - 6 yrs ago sustained R femoral fx, repaired. Osteoporosis eval as an outpatient as above (6) Hx pulmonary embolism: - 6 yrs ago following initial R femoral fracture. Teds and SCD to nonaffected leg. Add pharmacologic DVT prophylaxis (Lovenox) (7) Hx of resection of small bowel: - 6 yrs ago s/p femoral fracture. Stable. (8) Tobacco use: - Smoking currently about 1 ppd since age 17. Encourage cessation. nicotine patch. - Increases risk of osteoporosis with intertrochanteric note as above. (9) DVT prophylaxis: Teds and SCDs to nonaffected leg, no chemical ppx in the setting of surgical procedure. Add Lovenox Subjective Feeling good postop. Not much of any pain. No shortness of breath, no nausea no vomiting. He notes he was nauseated last night but that improved with Zofran and does not come back. He notes his PCP has checked a bone density scan not that long ago and he believes it showed some degree of thin bones. He does take 5000 units of vitamin D daily and tries to walk his dogs daily for weightbearing exercise. Review of Systems All systems reviewed & are unremarkable except as noted in HPI & below Physical Exam Vital Signs (Past 24 Hours): Last Vital Signs Temp 37.0 C 02/03/19 18:08 Pulse 68 02/03/19 18:08 Resp 22 02/03/19 18:08 BP 129/74 02/03/19 18:08 Pulse Ox 97 02/03/19 18:08 Physical Exam: General he is awake alert oriented x3, pleasant no distress. HEENT normal cephalic atraumatic mucous membranes are moist Breathing is unlabored no accessory muscle use good effort Skin no rashes no pallor or icterus Musculoskeletal exam he is postop with no gross deformities otherwise Neuro shows cranial nerves II through XII are grossly intact with no notable deficits otherwise Mental status good recent and remote recall normal mood and affect good judgment and insight
[2019-02-03] MEDS: ACETAMINOPHEN 1,000 MG/100 ML VIAL IV SCH (21:02)
[2019-02-03] MEDS: SERTRALINE HCL 50 MG TABLET PO SCH (21:05)
[2019-02-03] MEDS: DOCUSATE SODIUM 100 MG CAP PO SCH (21:05)
[2019-02-03] MEDS: ATORVASTATIN 40 MG TAB PO SCH (21:06)
[2019-02-03] MEDS: DOCUSATE SODIUM/SENNA 50/8.6MG TAB PO SCH (21:10)
[2019-02-03] MEDS: CEFAZOLIN 2000MG 2,000 MG/15 ML SYR IV SCH (21:14)
[2019-02-04] MEDS: OXYCODONE HCL IR 5 MG TAB (IMMEDIATE RELEASE) PO PRN ×3 (00:31→17:05)
[2019-02-04] MEDS: HYDROmorphone INJ 0.5 MG/0.5 ML SYR IV PRN ×3 (03:15→10:23)
[2019-02-04] MEDS: ACETAMINOPHEN 1,000 MG/100 ML VIAL IV SCH (03:54)
[2019-02-04] MEDS: CEFAZOLIN 2000MG 2,000 MG/15 ML SYR IV SCH (05:33)
[2019-02-04 05:57] LABS: Basophils # (auto) 0.03 K/uL (0-0.2); Basophils % (auto) 0.2 %; Eosinophils # (auto) 0.06 K/uL (0-0.5); Eosinophils % (auto) 0.4 %; Hemoglobin 13.7 g/dL (14.0-18.0); Immature Granulocytes # (auto) 0.04 K/uL (0.00-0.02); Immature Granulocytes % (auto) 0.3 %; Lymphocytes # (auto) 1.13 K/uL (1.2-3.4); Lymphocytes % (auto) 7.7 %; Mean Corpuscular Hgb Conc 33.4 g/dL (32-36); Mean Corpuscular Volume 90.7 fL (80-100); Mean Platelet Volume 9.6 fL (7.4-10.4); Monocytes # (auto) 0.73 K/uL (0.11-0.59); Neutrophils # (auto) 12.67 K/uL (1.4-6.5); Neutrophils % (auto) 86.4 %; Platelet Count 169 K/uL (130-400); RDW Coefficient of Variation 13.4 % (11.5-14.5); RDW Standard Deviation 44.6 fL (36.4-46.3); Red Blood Count 4.52 M/uL (4.7-6.1); White Blood Count 14.66 K/uL (4.8-10.8)
[2019-02-04 06:30] LABS: BUN Creatinine Ratio 10.4 (10-20); Calcium 8.8 mg/dl (8.5-10.1); Creatinine Clr Calc Pharmacy 65.6 ml/min; Est GFR (African American) 62.2; Est GFR (Non-African American) 53.6; Potassium 4.1 mmol/L (3.5-5.1)
--- NOTE | 2019-02-04 07:23 | Anesthesiology Progress Note ---
Date of Service February 04, 2019 Anesthesia Post Procedure Vital Signs Vital Signs: Temp Pulse Pulse Pulse Pulse Resp BP 02/04/19 05:39 02/04/19 04:56 02/04/19 03:36 02/04/19 03:35 37.2 C 76 14 188/96 H 02/04/19 00:20 02/03/19 23:14 37.1 C 83 16 160/97 H 02/03/19 18:47 36.7 C 88 20 02/03/19 18:08 37.0 C 68 22 02/03/19 17:43 37.0 C 74 18 02/03/19 17:10 37.2 C 84 18 02/03/19 16:46 36.6 C 73 17 02/03/19 16:35 36.6 C 81 17 02/03/19 16:25 36.6 C 81 14 02/03/19 16:10 36.6 C 62 16 02/03/19 16:00 36.6 C 85 16 02/03/19 15:50 88 12 02/03/19 15:40 75 13 02/03/19 15:30 81 18 02/03/19 15:20 81 16 02/03/19 15:12 36.2 C L 81 18 02/03/19 12:33 37 C 64 20 02/03/19 11:19 36.9 C 86 18 02/03/19 11:00 60 BP Pulse Ox Pulse Ox 02/04/19 05:39 163/95 H 02/04/19 04:56 94 02/04/19 03:36 182/94 H 02/04/19 03:35 90 02/04/19 00:20 92 02/03/19 23:14 91 02/03/19 18:47 142/79 H 93 02/03/19 18:08 129/74 97 02/03/19 17:43 134/71 93 02/03/19 17:10 109/70 98 02/03/19 16:46 102/56 L 95 02/03/19 16:35 102/58 L 95 02/03/19 16:25 115/64 95 02/03/19 16:10 103/64 95 02/03/19 16:00 107/68 93 02/03/19 15:50 122/75 94 02/03/19 15:40 123/75 94 02/03/19 15:30 107/74 100 02/03/19 15:20 100/64 100 02/03/19 15:12 114/90 100 02/03/19 12:33 118/67 95 02/03/19 11:19 118/70 91 02/03/19 11:00 Pain Intensity Right Hip: Pain Intensity: 7 Notes Mental Status: alert / awake / arousable Patient Amnestic to Procedure: Yes Nausea / Vomiting: adequately controlled Pain: adequately controlled Airway Patency, RR, SpO2: stable & adequate BP & HR: stable & adequate Hydration State: stable & adequate Anesthetic Complications: no major complications apparent
--- NOTE | 2019-02-04 07:53 | Progress Note ---
DATE: 02/04/2019 SUBJECTIVE: He is alert, oriented this morning. He is approximately 16 hours postoperative for an open reduction and internal fixation of the right hip. He is alert, oriented, no chest pain or neck pain. No shortness of breath. His right hip is painful, but moderate and controlled. OBJECTIVE: Vital signs stable, blood pressure 168/93. Afebrile. ASSESSMENT: Status post repair of the right hip just done yesterday, 03 of February. PLAN: I think he will stay 1 more day in the hospital, anticipate him going home tomorrow. I anticipate home health services. His weightbearing status should be approximately 25-50% on the right. There is a prescription for Encinal on his chart and I suggest an adult aspirin or baby aspirin each and every day to prevent a DVT.
--- NOTE | 2019-02-04 08:03 | Operative Report ---
DATE OF OPERATION: 02/03/2019 PREOPERATIVE DIAGNOSIS: Intertrochanteric fracture, right hip. POSTOPERATIVE DIAGNOSIS: Intertrochanteric fracture, right hip. PROCEDURE: Included an open reduction internal fixation right hip with a trochanteric femoral nail. IMPLANTS USED: Trochanteric femoral nail by Results Scorecard short nail. SURGEON: Tal Anderson DO TUCKPOINTER CLEANER CAULKER: Aroldo Santana PA-C ESTIMATED BLOOD LOSS: 100 mL. COMPLICATIONS: None. DESCRIPTION OF PROCEDURE: The patient was taken to the Operating Room. A spinal anesthetic was provided to the patient, later on had to be converted to a general anesthetic. He was placed up on the fracture table. Provisional traction held the right lower extremity. He was scrubbed, prepped and draped sterile. I made a skin incision, fascial incision. I placed a guidewire right at the tip of the greater trochanter, placed the guidewire down through the femoral shaft, reamed, placed a short lorri over the guidewire. This was locked proximally and distally. There were no issues. We irrigated and closed in layers. Post-reduction films were anatomic. Sterile dressings applied. The patient extubated to PACU stable. I attest to the content of the Intraoperative Record and any orders documented therein. Any exception s are noted below.
[2019-02-04] MEDS: METOPROLOL TARTRATE 25 MG TAB PO SCH ×2 (08:36→21:56)
[2019-02-04] MEDS: CHOLECALCIFEROL 1,000 UNITS TAB PO SCH (08:36)
[2019-02-04] MEDS: DOCUSATE SODIUM 100 MG CAP PO SCH ×2 (08:37→21:55)
[2019-02-04] MEDS: LISINOPRIL 10 MG TAB PO SCH (08:37)
[2019-02-04] MEDS: NICOTINE 14 MG/24 HR PATCH TD SCH (08:37)
[2019-02-04] MEDS: ASPIRIN 325 MG ECTAB PO SCH (08:37)
[2019-02-04] MEDS: BISACODYL 5 MG TABEC PO SCH (08:37)
[2019-02-04] MEDS ORDERED: ENOXAPARIN INJ 40 MG/0.4 ML SYR SQ SCH (09:00)
[2019-02-04] MEDS ORDERED: SODIUM CHLORIDE 0.9% 1000ML 1,000 ML IV SCH (11:30)
[2019-02-04] MEDS: KETOROLAC TROMETHAMINE 15 MG/ML VIAL IV PRN ×2 (12:57→19:45)
[2019-02-04] MEDS: ACETAMINOPHEN 325 MG TAB PO SCH ×2 (14:02→21:54)
--- NOTE | 2019-02-04 17:44 | Hospitalist Progress Note ---
Date of Service February 04, 2019 Assessment & Plan (1) Status post closed fracture of right femur: Postop, PT/OT eval and treat. Vitamin D reasonable, outpatient evaluation in regards to repeat DEXA versus empiric treatment based on his prior DEXA and current fractures. Smoke cessation discussed at length (2) CAD (coronary artery disease): - Hx of bare metal stent to the Left circumflex s/p STEMI in 2008. Follows with [facility] cardiology - Continue asa daily, lisinopril 10 mg daily, metoprolol tartrate 25 mg PO BID, atorvastatin 80 mg HS -No complaints in this regard - Encourage cessation of tobacco smoking. (3) HTN (hypertension): - Continue antihypertensives. Readings reasonable overall, and have improved (4) HLD (hyperlipidemia): - Cont statin therapy as above. Outpatient follow-up (5) Hx of fracture of femur: - 6 yrs ago sustained R femoral fx, repaired. Osteoporosis eval as an outpatient as above (6) Hx pulmonary embolism: - 6 yrs ago following initial R femoral fracture. Teds and SCD to nonaffected leg. pharmacologic DVT prophylaxis (Lovenox) (7) Hx of resection of small bowel: - 6 yrs ago s/p femoral fracture. Stable. (8) Tobacco use: - Smoking currently about 1 ppd since age 17. Encouraged cessation, and had an extensive discussion on how to go about it. Encouraged him to have somebody throw away all of cigarettes etc. at home so that whenever he gets home it is easier to be an ex smoker. Had extensive discussions on the multiple comorbidities that smoking brings about.. nicotine patch. - Increases risk of osteoporosis with intertrochanteric note as above. (9) DVT prophylaxis: Teds and SCDs to nonaffected leg, and Lovenox Subjective Feeling reasonable except the pain is not under the best control. No other acute complaints. Apparently once he worked with PT did fairly poorly, and after discussion with him and his they are looking at rehab options He has no chest pain no shortness of breath, he has not had a bowel movement does not feel constipated, and notes ever since colon surgery has several days where he has no bowel movement as is his normal We also discussed smoke cessation given that he is now been several day cigarette free. He notes that he quit smoking about 5 years at a time at least once, and does know that he needs to quit. He is interested in maybe trying to quit now, believes that simply quitting cold turkey is the best method for him. Review of Systems All systems reviewed & are unremarkable except as noted in HPI & below Physical Exam Vital Signs (Past 24 Hours): Last Vital Signs Temp 37.1 C 02/04/19 15:16 Pulse 63 02/04/19 15:16 Resp 20 02/04/19 15:16 BP 121/73 02/04/19 15:16 Pulse Ox 94 02/04/19 15:16 Physical Exam: General he is awake alert oriented x3 pleasant no distress. HEENT normocephalic atraumatic mucous membranes are moist. Lungs are unlabored no accessory muscle use good effort. Skin shows no rashes no pallor or icterus. Neuro shows no focal deficits.
[2019-02-04] MEDS: ATORVASTATIN 40 MG TAB PO SCH (21:57)
[2019-02-04] MEDS: SERTRALINE HCL 50 MG TABLET PO SCH (21:58)
[2019-02-04] MEDS: DOCUSATE SODIUM/SENNA 50/8.6MG TAB PO SCH (22:18)
[2019-02-05] MEDS: OXYCODONE HCL IR 5 MG TAB (IMMEDIATE RELEASE) PO PRN ×3 (04:50→20:04)
[2019-02-05 06:07] LABS: Basophils # (auto) 0.05 K/uL (0-0.2); Basophils % (auto) 0.5 %; Eosinophils # (auto) 0.51 K/uL (0-0.5); Eosinophils % (auto) 5.3 %; Hematocrit (blood only) 36.8 % (42-52); Hemoglobin 12.4 g/dL (14.0-18.0); Immature Granulocytes # (auto) 0.06 K/uL (0.00-0.02); Immature Granulocytes % (auto) 0.6 %; Lymphocytes # (auto) 1.14 K/uL (1.2-3.4); Lymphocytes % (auto) 11.8 %; Mean Corpuscular Hgb Conc 33.7 g/dL (32-36); Mean Corpuscular Volume 91.5 fL (80-100); Mean Platelet Volume 9.4 fL (7.4-10.4); Monocytes # (auto) 0.89 K/uL (0.11-0.59); Monocytes % (auto) 9.2 %; Neutrophils # (auto) 6.98 K/uL (1.4-6.5); Neutrophils % (auto) 72.6 %; Platelet Count 157 K/uL (130-400); RDW Coefficient of Variation 13.5 % (11.5-14.5); RDW Standard Deviation 44.9 fL (36.4-46.3); Red Blood Count 4.02 M/uL (4.7-6.1); White Blood Count 9.63 K/uL (4.8-10.8)
[2019-02-05 06:25] LABS: BUN Creatinine Ratio 15.2 (10-20); Calcium 8.6 mg/dl (8.5-10.1); Creatinine Clr Calc Pharmacy 74.2 ml/min; Est GFR (African American) 72.2; Est GFR (Non-African American) 62.3; Potassium 4.1 mmol/L (3.5-5.1)
[2019-02-05] MEDS: CHOLECALCIFEROL 1,000 UNITS TAB PO SCH (08:17)
[2019-02-05] MEDS: KETOROLAC TROMETHAMINE 15 MG/ML VIAL IV PRN (08:17)
[2019-02-05] MEDS: NICOTINE 14 MG/24 HR PATCH TD SCH (08:17)
[2019-02-05] MEDS: BISACODYL 5 MG TABEC PO SCH (08:17)
[2019-02-05] MEDS: ASPIRIN 325 MG ECTAB PO SCH (08:18)
[2019-02-05] MEDS: METOPROLOL TARTRATE 25 MG TAB PO SCH ×2 (08:18→20:05)
[2019-02-05] MEDS: LISINOPRIL 10 MG TAB PO SCH (08:18)
[2019-02-05] MEDS: ACETAMINOPHEN 325 MG TAB PO SCH ×3 (08:18→20:06)
[2019-02-05] MEDS: DOCUSATE SODIUM 100 MG CAP PO SCH ×2 (08:18→20:04)
--- NOTE | 2019-02-05 08:48 | Orthopedic Progress Note ---
Date of Service February 05, 2019 Assessment & Plan (1) Closed intertrochanteric fracture of right femur: Overall he is doing fairly well. Is having some soreness in the hip which is to be expected. According to Dr.' Anderson he can be 50% partial weightbearing on the right hip. DVT prophylaxis of aspirin 81 mg twice a day should be sufficient. He is orthopedically stable for discharge. He will follow-up with Dr. Anderson in 2 weeks. Office phone number is [phone] Present on Admission?: Yes Subjective Semaj was seen and examined at bedside this morning. Overall he is doing fairly well. He states having some soreness in the hip which is to be expected. He has been working well with physical therapy. He has no complaints. Physical Exam 2 Vital Signs (Past 24 Hours): Last Vital Signs Temp 36.9 C 02/05/19 08:05 Pulse 61 02/05/19 08:05 Resp 18 02/05/19 08:05 BP 165/89 H 02/05/19 08:05 Pulse Ox 97 02/05/19 08:05 Musculoskeletal: On physical examination of the right hip, the dressing is clean and dry. He is sitting in a chair eating breakfast. He has active dorsiflexion and plantar flexion of his right ankle. Sensations intact. (1) Closed intertrochanteric fracture of right femur Encounter type: initial encounter Fracture alignment: nondisplaced Qualified Code(s): S72.144A - Nondisplaced intertrochanteric fracture of right femur, initial encounter for closed fracture
--- NOTE | 2019-02-05 18:10 | Hospitalist Progress Note ---
Date of Service February 05, 2019 Assessment & Plan (1) Status post closed fracture of right femur: Postop, PT/OT eval and treat ongoing, and anticipate a rehab goal placement. Vitamin D reasonable, outpatient evaluation in regards to repeat DEXA versus empiric treatment based on his prior DEXA and current fractures. Smoke cessation discussed at length (2) CAD (coronary artery disease): - Hx of bare metal stent to the Left circumflex s/p STEMI in 2008. Follows with [facility] cardiology - Continue asa daily, lisinopril 10 mg daily, metoprolol tartrate 25 mg PO BID, atorvastatin 80 mg HS -Still has no complaints in this regard - Encouraging cessation of tobacco smoking. (3) HTN (hypertension): - Continue antihypertensives. Readings have shown overall good control (4) HLD (hyperlipidemia): - Cont statin therapy as above. Outpatient follow-up (5) Hx of fracture of femur: - 6 yrs ago sustained R femoral fx, repaired. Osteoporosis eval as an outpatient as above (6) Hx pulmonary embolism: - 6 yrs ago following initial R femoral fracture. Teds and SCD to nonaffected leg. pharmacologic DVT prophylaxis (Lovenox) (7) Hx of resection of small bowel: - 6 yrs ago s/p femoral fracture. Stable. (8) Tobacco use: - Smoking currently about 1 ppd since age 17. Encouraged cessation, and had an extensive discussion on how to go about it. Continue to encourage (9) DVT prophylaxis: Teds and SCDs to nonaffected leg, and Lovenox Subjective Feels like he is improving, pain control is improving, he notes the Toradol really helps. He notes that he will not be able to go straight home, he is too weak and unsteady, but he is willing to do rehab. We discussed smoke cessation again at length and in detail. Review of Systems All systems reviewed & are unremarkable except as noted in HPI & below Physical Exam Vital Signs (Past 24 Hours): Last Vital Signs Temp 36.8 C 02/05/19 15:11 Pulse 76 02/05/19 15:11 Resp 20 02/05/19 15:11 BP 114/72 02/05/19 15:11 Pulse Ox 92 02/05/19 15:11 Physical Exam: General he is awake alert oriented x3 pleasant no acute distress. HEENT normocephalic atraumatic mucous members are moist. Breathing is unlabored no accessory muscle use good effort. Skin shows no rashes no pallor or icterus. Neuro shows full range of motion no focal deficits. Mental status good recent and remote recall
[2019-02-05] MEDS: ATORVASTATIN 40 MG TAB PO SCH (20:04)
[2019-02-05] MEDS: SERTRALINE HCL 50 MG TABLET PO SCH (20:05)
[2019-02-05] MEDS: DOCUSATE SODIUM/SENNA 50/8.6MG TAB PO SCH (20:07)
[2019-02-06] MEDS: OXYCODONE HCL IR 5 MG TAB (IMMEDIATE RELEASE) PO PRN ×2 (05:41→10:09)
[2019-02-06] MEDS: ACETAMINOPHEN 325 MG TAB PO SCH ×3 (07:49→21:53)
[2019-02-06] MEDS: LISINOPRIL 10 MG TAB PO SCH (08:32)
[2019-02-06] MEDS: DOCUSATE SODIUM 100 MG CAP PO SCH ×2 (08:32→21:55)
[2019-02-06] MEDS: NICOTINE 7 MG/24 HR TDSY TD SCH (08:32)
[2019-02-06] MEDS: BISACODYL 5 MG TABEC PO SCH (08:32)
[2019-02-06] MEDS: ASPIRIN 325 MG ECTAB PO SCH (08:32)
[2019-02-06] MEDS: CHOLECALCIFEROL 1,000 UNITS TAB PO SCH (08:32)
[2019-02-06] MEDS: METOPROLOL TARTRATE 25 MG TAB PO SCH ×2 (08:32→21:53)
--- NOTE | 2019-02-06 17:27 | Hospitalist Progress Note ---
Date of Service February 06, 2019 Assessment & Plan (1) Status post closed fracture of right femur: Postop, PT/OT eval and treat ongoing, and anticipate a rehab goal placement, hopefully tomorrow. Vitamin D reasonable, outpatient evaluation in regards to repeat DEXA versus empiric treatment based on his prior DEXA and current fractures. Smoke cessation discussed at length multiple times during his hospital stay (2) CAD (coronary artery disease): - Hx of bare metal stent to the Left circumflex s/p STEMI in 2008. Follows with [facility] cardiology - Continue asa daily, lisinopril 10 mg daily, metoprolol tartrate 25 mg PO BID, atorvastatin 80 mg HS -Asymptomatic - Encouraging cessation of tobacco smoking. (3) HTN (hypertension): - Continue antihypertensives. Blood pressure shows good control (4) HLD (hyperlipidemia): - Cont statin therapy as above. Outpatient follow-up (5) Hx of fracture of femur: - 6 yrs ago sustained R femoral fx, repaired. Osteoporosis eval as an outpatient as above (6) Hx pulmonary embolism: - 6 yrs ago following initial R femoral fracture. Teds and SCD. pharmacologic DVT prophylaxis (Lovenox) (7) Hx of resection of small bowel: - 6 yrs ago s/p femoral fracture. Stable. (8) Tobacco use: - Smoking currently about 1 ppd since age 17. Encouraged cessation, and had multiple discussions about this. (9) DVT prophylaxis: Teds and SCDs, and Lovenox (10) Discharge planning issues: Appearing to need rehab, he is chosen an SNF for this, he appears stable hopefully he can go tomorrow. Subjective Pain under better control. Slowly doing better with therapy. Optimistic he will do well. Awaiting placement at rehab, hopefully tomorrow. No other complaints. Review of Systems All systems reviewed & are unremarkable except as noted in HPI & below Physical Exam Vital Signs (Past 24 Hours): Last Vital Signs Temp 37.0 C 02/06/19 15:13 Pulse 65 02/06/19 15:13 Resp 18 02/06/19 15:13 BP 105/65 02/06/19 15:13 Pulse Ox 91 02/06/19 15:13 Physical Exam: In general he is awake alert oriented x3 pleasant no distress. HEENT normocephalic atraumatic mucous members are moist. Breathing is unlabored no accessory muscle use. Skin shows no rashes no pallor or icterus. No focal neuro deficits.
[2019-02-06] MEDS: SERTRALINE HCL 50 MG TABLET PO SCH (21:52)
[2019-02-06] MEDS: ATORVASTATIN 40 MG TAB PO SCH (21:54)
[2019-02-06] MEDS: DOCUSATE SODIUM/SENNA 50/8.6MG TAB PO SCH (22:14)
[2019-02-06] MEDS: KETOROLAC TROMETHAMINE 15 MG/ML VIAL IV PRN (22:15)
[2019-02-07] MEDS: CHOLECALCIFEROL 1,000 UNITS TAB PO SCH (08:17)
[2019-02-07] MEDS: DOCUSATE SODIUM 100 MG CAP PO SCH (08:17)
[2019-02-07] MEDS: LISINOPRIL 10 MG TAB PO SCH (08:17)
[2019-02-07] MEDS: NICOTINE 7 MG/24 HR TDSY TD SCH (08:18)
[2019-02-07] MEDS: BISACODYL 5 MG TABEC PO SCH (08:18)
[2019-02-07] MEDS: METOPROLOL TARTRATE 25 MG TAB PO SCH (08:18)
[2019-02-07] MEDS: ACETAMINOPHEN 325 MG TAB PO SCH ×2 (08:18→13:32)
[2019-02-07] MEDS ORDERED: ASPIRIN 81 MG ECTAB PO SCH (09:00)
[2019-02-07] MEDS: KETOROLAC TROMETHAMINE 15 MG/ML VIAL IV PRN (12:24)
--- NOTE | 2019-02-07 16:36 | Discharge Summary ---
Date of Service February 07, 2019 Admission HPI Per Admitting Provider This is a 63 yo M with PMHx of CAD with stent x 1, HTN, HLD, current tobacco use with 15 cig daily since age 17. Pt also with surgical hx of previous R femoral fracture and fixation, who subsequently suffered a PE and small bowel resection approximately 2-3 wks after initial femoral fracutre 6 years ago. Pt reports mechanical fall after slipping on ice this morning. He denies hitting his head, LOC or preceeding lightheadedness or dizziness. He has been feeling in his normal state otherwise. Pt walks daily with his dogs about 20 minutes, and has no difficulty climbing a flight of stairs. Principal Diagnosis no Discharge Data Allergies Allergy/AdvReac Type Severity Reaction Status Date / Time No Known Allergies Allergy Verified 02/02/19 08:48 Consultations 02/02/19 10:02 ED Decision to Admit Stat 02/02/19 11:49 Consult Anesthesiology Routine Consult Case Management - Discharge Planning Routine Consult Orthopedic Surgery Routine 02/03/19 17:17 Consult Case Management - Discharge Planning Routine Procedures Performed Operation Date: 02/03/19 13:15 Actual Procedures p Right Hip Trochanteric Fixation Nail(Right) - Tal Anderson DO Ordered Studies 02/03/19 13:15 FL fluoroscopy <1hr Routine FL hip RT 2-3V Routine Hospital Course (1) Status post closed fracture of right femur: (2) CAD (coronary artery disease): (3) HTN (hypertension): (4) HLD (hyperlipidemia): (5) Hx of fracture of femur: (6) Hx pulmonary embolism: (7) Hx of resection of small bowel: (8) Tobacco use: (9) DVT prophylaxis: (10) Discharge planning issues: 63-year-old white male admitted on February 02, 2019 because of closed fracture of right femur: Seizure was started February 03, 2019, Has been on Postop, PT/OT eval and treat Vitamin D reasonable, outpatient evaluation in regards to repeat DEXA versus empiric treatment based on his prior DEXA and current fractures. Smoke cessation discussed at length multiple times during his hospital stay Hx of bare metal stent to the Left circumflex s/p STEMI in 2008. Follows with [facility] cardiology - Continue asa daily, lisinopril 10 mg daily, metoprolol tartrate 25 mg PO BID, atorvastatin 80 mg HS, Encouraging cessation of tobacco smoking. hypertension,Dyslipidemia, Continue Hx of fracture of femur, 6 yrs ago sustained R femoral fx, repaired. Osteoporosis eval as an outpatient as above Hx pulmonary embolism 6 yrs ago following initial R femoral fracture. Teds and SCD. pharmacologic DVT prophylaxis (Lovenox) Initially plan to discharge to SNF for rehab, However he was dernied, Encourage family to appeal if they want, Patient choose to go home with their own risk. you had Status post closed fracture of right femur: you need to follow up [facility] pcp for outpatient evaluation in regards to repeat DEXA versus empiric treatment based on his prior DEXA and current fractures. you need to quit Smoke you have Hx of bare metal stent to the Left circumflex s/p STEMI in 2008. you need to continue asa daily, lisinopril 10 mg daily, metoprolol tartrate 25 mg PO BID, atorvastatin 80 mg HS you were denies to SNF rehab, you are in risk of fall, you can appeal if you want , Fall precaution, you need to follow up with your primary care physician in 1 week, - take medication as instructed, never overdose or any misuse, or take with alcohol, because misuse of medicine may cause organ damage or , call me, or your primary care physician if have questions of discharge medicaitons. - call your primary care physician, or go to local emergency room if has any fever/chill, chest pain, shortness of breathing, nausea/vomiting/abdominal pain, facial droop/slurry speech/local weakness, or if has any questions. - fall precaution - diet as instructed - you need to follow up with your subspecialist, such as Dr. Moreira as instructed Subjective at discharge Pain under better control. No other complaints. Review of Systems All systems reviewed & are unremarkable Physical Exam Upon discharge Physical Exam: Looks mild weakness, awake alert oriented x3 pleasant no distress. HEENT normocephalic atraumatic mucous members are moist. Breathing is unlabored no accessory muscle use. Heart was regular rhythm S1-S2 Abdomen was soft nontender bowel sounds positive Skin shows no rashes no pallor or icterus. No focal neuro deficits. Total Time Total Time Spent Total Time Spent (In Minutes): 35 Total Time Includes: Examination of the Patient, Discharge Planning, Medication Reconciliation and Communication With Other Providers Discharge Plan Discharge Items Patient Disposition: Home - Home Health Services Reason For Visit: HIP FRACTURE Discharge Diagnosis: hip fracture and multiple medical problems Condition: Fair Discharge Goals: Decrease discomfort and Increase independence Activity: As commented below Activity Comment: stick with 25% tp 50% weight bearing on right for one month Bathing: Keep incision dry Weightbearing Comment: 25-50% on right Non-emergency contact: Primary Care Provider Call non-emergency contact if: you have any medication questions Follow-up/Referrals: George Henry MD [Primary Care Provider] - Diet: Regular Addtl Provider Instructions: home , rest , recover. call if problems. medication as directed you had Status post closed fracture of right femur: you need to follow up [facility] pcp for outpatient evaluation in regards to repeat DEXA versus empiric treatment based on his prior DEXA and current fractures. you need to quit Smoke you have Hx of bare metal stent to the Left circumflex s/p STEMI in 2008. you need to continue asa daily, lisinopril 10 mg daily, metoprolol tartrate 25 mg PO BID, atorvastatin 80 mg HS you were denies to SNF rehab, you are in risk of fall, you can appeal if you want , Fall precaution, you need to follow up with your primary care physician in 1 week, - take medication as instructed, never overdose or any misuse, or take with alcohol, because misuse of medicine may cause organ damage or , call me, or your primary care physician if have questions of discharge medicaitons. - call your primary care physician, or go to local emergency room if has any fever/chill, chest pain, shortness of breathing, nausea/vomiting/abdominal pain, facial droop/slurry speech/local weakness, or if has any questions. - fall precaution - diet as instructed - you need to follow up with your subspecialist, such as Dr. Moreira as instructed Prescriptions: New hydrocodone-acetaminophen [Leblanc] 10-325 mg tablet 1 tab PO Q6H PRN (Reason: pain) Qty: 40 RF: 0 Continued sertraline 50 mg Tablet 50 mg PO QPM Qty: 0 RF: 0 aspirin 325 mg Tablet,Delayed Release (Dr/Ec) 325 mg PO DAILY Qty: 0 RF: 0 zolpidem 5 mg Tablet 5 mg PO HS PRN (Reason: Insomnia) Qty: 0 RF: 0 metoprolol tartrate 25 mg Tablet 25 mg PO BID Qty: 0 RF: 0 naproxen 500 mg Tablet 500 mg PO BID PRN (Reason: Pain) Qty: 0 RF: 0 lisinopril 10 mg Tablet 10 mg PO DAILY Qty: 0 RF: 0 cholecalciferol (vitamin D3) 5,000 unit Capsule 5,000 unit PO DAILY Qty: 0 RF: 0 atorvastatin 80 mg Tablet 80 mg PO HS RF: 0 Stand-Alone Forms: [facility] Discharge Orders: Discharge Order (Routine); Ordered 02/07/19 Ordered By: Igor Stubbs Admission Data Admit Date/Time: 02/02/19 10:13 Attending Provider: Igor Stubbs Admit Provider: Demetrius Hudson Primary Care Provider: George Henry Other Providers: Tal Anderson ; Jean-Claude Gray ; Demetrius Hudson ; Barry Morillo Service: Surgical Services Other Pending Studies at Discharge: No
--- NOTE | 2019-02-09 13:12 | Coding Query ---
CODING QUERY To promote full compliance with coding requirements relating to patient care, provider participation is requested in all cases of quality audit representative uncertainty. Please assist us with the question(s) below: Coding Question(s): There is documentation in the record of possible Osteoporosis in this patient with a Right Hip Fracture after slipping on ice with a fall and history of a previous right hip fracture in the past. Please clarify below, in your clinical opinion. ( x) Possible Osteoporotic Right Hip Fracture ( ) Right Hip Fracture due to Trauma only and is Not an Osteoporotic Fracture Physician's Response(s): Thank you Diana Vanessa Principal Diagnosis: "that condition established after study, to be chiefly responsible for occasioning the admission of the patient to the hospital for care." Co-Existing Principal Diagnosis: "when two or more diagnoses equally meet the criteria for principal diagnosis as determined by the circumstances of admission, diagnostic work up, and/or therapy provided, and the Alphabetic Index, Tabular List, or another coding guideline does not provide sequencing direction, any one of the diagnoses may be sequenced first." "When the physician has documented what appears to be a current diagnosis in the body of the record, but has not included the diagnosis in the final diagnostic statement, the physician should be asked whether the diagnosis should be added." (Source Coding [facility] 2 QTR90. p3-4) MINAL
== END 2019-02-07 18:45 | disposition home health service (06) | DRG 482 ==
LOC: ED 08:27 → 2N 10:13 → SUATTDRO 10:13 → 2N 11:16 → 3E 02-03 15:12

== ENCOUNTER 2024-09-24 12:45 | Observation (INO) ==
--- NOTE | 2024-09-24 13:33 | Emergency Department Note ---
History of Present Illness General Chief complaint: Rectal Bleed Stated complaint: RECTAL BLEEDING, VOMITING, CANCER Time Seen by Provider: 09/24/24 13:15 Source: patient, family ( who is at the bedside), RN notes reviewed and old records reviewed (07/29/24-patient oncology visit for prostate cancer treatment and follow-up) Mode of arrival: ambulatory History of Present Illness This patient 68-year-old male who comes in after having some rectal bleeding. 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 He is receiving IV chemo but the last time he received was 3 weeks ago he had radiation both external and other forms in the past but nothing recently. He has been constipated for several days and start having bowel movements around 2:00 in the morning a little bit of blood in it 5 episodes where bright red blood some darker as well minimal abdominal discomfort no sick and rectal pain he is taking aspirin 81 mg but no other blood thinners. He has minimal abdominal discomfort has been feeling weak over the last several several days . he has had a cough but no fever. Home Medications Medication Instructions Recorded Confirmed Type sertraline 50 mg tablet 50 mg PO QPM #0 tabs 10/27/12 09/24/24 History metoprolol tartrate 25 mg tablet 25 mg PO BID ##0 10/11/14 09/24/24 History zolpidem 5 mg tablet (Ambien) 5 mg PO HS PRN Insomnia #0 tabs 10/11/14 09/24/24 History lisinopril 10 mg tablet 10 mg PO QAM ##0 11/03/17 09/24/24 History nitroglycerin 0.4 mg sublingual 0.4 mg sublingual .DISSOLVE 1 06/14/19 09/24/24 History tablet TABLET UN PRN Chest Pain docusate sodium 100 mg capsule 100 mg PO BID PRN constipation #30 08/30/19 09/24/24 Rx (Colace) caps denosumab 120 mg/1.7 mL (70 mg/mL) 120 mg subcut MONTHLY 03/10/24 09/24/24 History subcutaneous solution (Xgeva) leuprolide (3 month) 22.5 mg (3 22.5 mg IM .3 months 03/10/24 09/24/24 History month) intramuscular syringe kit (Lupron Depot) rosuvastatin 40 mg tablet (Crestor) 40 mg PO DAILY 03/10/24 09/24/24 History aspirin 81 mg capsule 81 mg PO DAILY 03/28/24 09/24/24 History olanzapine 2.5 mg tablet 2.5 mg PO DIRECTED 09/24/24 09/24/24 History ondansetron HCl 8 mg tablet 8 mg PO Q8H PRN n/v 09/24/24 09/24/24 History Allergies Allergy/AdvReac Type Severity Reaction Status Date / Time No Known Allergies Allergy Verified 04/04/24 09:12 Past Med/Surg History Problem List (Updated 09/24/24 @ 18:46 by Aroldo Rush MD) Prostate cancer metastatic to multiple sites (Acute) Weakness (Acute) Elevated WBC count (Acute) Acute GI bleeding (Acute) Leukocytosis Rectal bleed Prostate cancer metastatic to bone (Chronic 05/19/22) Prostate cancer (Chronic) Knee pain CAD (coronary artery disease) HTN (hypertension) Closed intertrochanteric fracture of right femur Hx pulmonary embolism Hx of fracture of femur DVT prophylaxis Fall Encounter for smoking cessation counseling Discharge planning issues Pre-operative cardiovascular examination Insomnia CAD (coronary artery disease) of artery bypass graft Anxiety Open right hip fracture Encounter for pre-operative examination Medical History (Updated 09/24/24 @ 18:46 by Aroldo Rush MD) History of embolism ? hx fat embolism s/p right leg fracture (2011)- not definitely diagnosed-- lovenox injections x short period of time; no issues since History of heart attack 2008 Heartburn occasional Prostate cancer History of diverticulitis 2011 HLD (hyperlipidemia) HTN (hypertension) CAD (coronary artery disease) s/p BMS to pLCX + PCI pLCX (2008)- follows with PCP (Dr. Melina Juares) Surgical History H/O exploratory laparotomy DONE TO VISUALIZE PROSTATE (UNABLE TO DUE PROSTATECTOMY D/T SCAR TISSUE FROM PREVIOUS SURGERY). History of appendectomy History of cardiac cath 2008= STENT X 1 History of colonoscopy History of hip surgery Right hip troch nail: 02/03/19: LMA#4 at [facility] History of surgery on extremity RIGHT LEG/+ HARDWARE H/O bilateral cataract extraction Hx of resection of small bowel + COLOSTOMY (SUBSEQUENT REVERSAL) + APPENDECTOMY DURING BOWEL RESECTION Family History Grandfather (Paternal) , at age 69 of heart issue No problems noted. Grandfather (Maternal) , age 68 cause unkown No problems noted. Grandmother (Maternal) , age 49 perhaps an aneurysm No problems noted. Grandmother (Paternal) , around age 69 of heart problem No problems noted. Father , age 77 of Parkinsons No problems noted. Mother Age: 95 No problems noted. Brother Age: 72 Prostate cancer Social History Smoking Status: Current every day smoker Tobacco Type: Cigarettes Cigarettes Per Day: 1/2 PPD x 35 years; Second Hand Exposure: No; Do You Dip or Chew Tobacco: No; Hx Alcohol Use: Yes Alcohol type: beer and wine Hx Substance Use: No Preferred Language: Hong Konger Communication Ability: Effective Construction Tech Required: No Beliefs That Will Affect Care: None Current Living Situation: Spouse current occupational status: retired Feels Safe at Home: Yes Assistive Devices: Glasses Review of Systems A total of 10 systems reviewed and were otherwise negative Physical Exam Vital Signs Vital Signs - 24 hr 09/24/24 12:47 09/24/24 12:59 09/24/24 13:19 Temperature 36.5 C Temperature Source Temporal Artery Scan Pulse Rate 93 H 75 Pulse Rate [Apical] 77 Pulse Rate from SpO2 Sensor Pulse Rhythm [Apical] Pulse Strength [Apical] Respiratory Rate 20 20 Respiratory Effort / Characteristics Non-Labored Spontaneous Respiratory Depth Normal Respiratory Pattern Blood Pressure 103/70 Blood Pressure [Right Arm] 104/62 Blood Pressure Mean 81 Blood Pressure Mean [Right Arm] 76 Blood Pressure Position Sitting Blood Pressure Position [Right Arm] Semi-fowlers Pulse Oximetry 95 96 Oxygen Delivery Method Room Air Room Air Sepsis Recent Fever Within 48 Hours No Sepsis New/Unexplained Change in Mental Status No Sepsis Action Taken by Nursing No Action Required 09/24/24 13:42 09/24/24 13:45 09/24/24 14:00 Temperature Temperature Source Pulse Rate 74 75 Pulse Rate [Apical] Pulse Rate from SpO2 Sensor 71 74 Pulse Rhythm [Apical] Pulse Strength [Apical] Respiratory Rate 18 25 H Respiratory Effort / Characteristics Respiratory Depth Respiratory Pattern Blood Pressure 114/64 Blood Pressure [Right Arm] Blood Pressure Mean 75 Blood Pressure Mean [Right Arm] Blood Pressure Position Blood Pressure Position [Right Arm] Pulse Oximetry 95 95 Oxygen Delivery Method Sepsis Recent Fever Within 48 Hours Sepsis New/Unexplained Change in Mental Status Sepsis Action Taken by Nursing 09/24/24 14:00 09/24/24 14:03 09/24/24 14:08 Temperature Temperature Source Pulse Rate 76 76 Pulse Rate [Apical] Pulse Rate from SpO2 Sensor 76 Pulse Rhythm [Apical] Pulse Strength [Apical] Respiratory Rate 18 19 Respiratory Effort / Characteristics Respiratory Depth Respiratory Pattern Blood Pressure 114/64 Blood Pressure [Right Arm] Blood Pressure Mean 75 Blood Pressure Mean [Right Arm] Blood Pressure Position Blood Pressure Position [Right Arm] Pulse Oximetry 95 93 Oxygen Delivery Method Room Air Sepsis Recent Fever Within 48 Hours Sepsis New/Unexplained Change in Mental Status Sepsis Action Taken by Nursing 09/24/24 14:51 09/24/24 16:00 09/24/24 17:27 Temperature Temperature Source Pulse Rate 79 82 Pulse Rate [Apical] 82 Pulse Rate from SpO2 Sensor 79 Pulse Rhythm [Apical] Pulse Strength [Apical] Respiratory Rate 19 18 Respiratory Effort / Characteristics Non-Labored Spontaneous Respiratory Depth Normal Respiratory Pattern Blood Pressure Blood Pressure [Right Arm] 119/75 Blood Pressure Mean Blood Pressure Mean [Right Arm] 89 Blood Pressure Position Blood Pressure Position [Right Arm] Lying Pulse Oximetry 93 95 Oxygen Delivery Method Room Air Sepsis Recent Fever Within 48 Hours Sepsis New/Unexplained Change in Mental Status Sepsis Action Taken by Nursing 09/24/24 18:00 Temperature Temperature Source Pulse Rate Pulse Rate [Apical] 82 Pulse Rate from SpO2 Sensor Pulse Rhythm [Apical] Regular Pulse Strength [Apical] Normal Respiratory Rate 18 Respiratory Effort / Characteristics Non-Labored Spontaneous Respiratory Depth Normal Respiratory Pattern Regular Blood Pressure Blood Pressure [Right Arm] 110/64 Blood Pressure Mean Blood Pressure Mean [Right Arm] 79 Blood Pressure Position Blood Pressure Position [Right Arm] Lying Pulse Oximetry 97 Oxygen Delivery Method Room Air Sepsis Recent Fever Within 48 Hours Sepsis New/Unexplained Change in Mental Status Sepsis Action Taken by Nursing General: Well developed well nourished chronically ill-appearing middle-age male who appears in no acute distress, breathing comfortably on room air. Normal speech HEENT: Normal cephalic atraumatic. Pupils are equal round and reactive to light. Extraocular movements are intact. Oropharynx is pink with moist mucous membranes. No swelling of the mouth lips or tongue. Neck: Supple with a midline trachea. No meningeal signs or stiffness, no JVD or bruits. No Stridor. Chest: Clear to auscultation bilaterally. No wheezes or rhonchi. No increased work of breathing. Heart: Regular rate and rhythm without murmurs or gallops. Abdomen: Soft nontender, nondistended without rebound guarding or rigidity. Rectum: There are some external hemorrhoids that appear irritated and likely were bleeding. The stool itself is not bloody but was guaiac positive. Extremities: No cyanosis clubbing or edema. No calf tenderness or assymetry Spine/Back. Non tender to palpation. No CVA tenderness Skin: Good turgor without rashes. Neurologic exam: Cranial nerves two through 12 are intact. Motor and sensation are intact and symmetrical throughout. Course Administered Medications Discontinued Medications Sodium Chloride (Nss) 500 mls @ 999 mls/hr IV .Q31M ONE Stop: 09/24/24 13:59 Last Infusion: 09/24/24 15:07 Dose: Infused Documented By: Admin: 09/24/24 14:09 Dose: 999 mls/hr Documented By: MMF Pantoprazole Sodium (Protonix) 40 mg in 10 mls @ 5 mls/min IV NOW ONE Stop: 09/24/24 17:44 Last Admin: 09/24/24 18:02 Dose: 5 mls/min Documented By: JAKE Medical Decision Making Differential Diagnosis GI bleed, anemia, hemorrhoids, colonic bleed, infection, inflammation Medical Records Attestation: I reviewed the patient's medical records. Home Medications Current Medication List: was personally reviewed by me Laboratory Data Attestation: I reviewed the patient's lab results. 09/24/24 13:17 09/24/24 13:17 Lab Results 09/24/24 09/24/24 09/24/24 Range/Units 13:17 13:50 14:03 WBC 15.83 H (4.8-10.8) K/ul RBC 3.12 L (4.70-6.10) M/uL Hgb 10.4 L (14.0-18.0) g/dl Hct 31.3 L (42.0-52.0) % MCV 100.3 H (80.0-100.0) fL MCH 33.3 (25.0-34.0) pg MCHC 33.2 (32.0-36.0) g/dL RDW Std Deviation 54.5 H (36.4-46.3) fL RDW Coeff of Emmett 14.8 H (11.5-14.5) % Plt Count 246 (130-400) K/uL MPV 8.9 L (9.4-12.4) fL Immature Gran % (Auto) 1.3 % Neut % (Auto) 93.3 % Lymph % (Auto) 1.5 % [place] % (Auto) 3.5 % Eos % (Auto) 0.1 % Baso % (Auto) 0.3 % Neut # (Auto) 14.79 H (1.40-6.50) K/uL Lymph # (Auto) 0.23 L (1.20-3.40) K/uL [place] # (Auto) 0.56 (0.11-0.59) K/uL Eos # (Auto) 0.01 (0.00-0.50) K/uL Baso # (Auto) 0.04 (0.00-0.20) K/uL Immature Gran # (Auto) 0.20 (0.01-0.20) K/uL Polychromasia 1+ PT 14.0 H (9.0-12.0) Seconds INR 1.3 H (0.9-1.1) APTT 26 (21-31) Seconds PTT Ratio 1.0 Sodium 136 (136-145) mmol/L Potassium 4.1 (3.5-5.1) mmol/L Chloride 104 (98-107) mmol/L Carbon Dioxide 22 (21-32) mmol/L Anion Gap 10 (3-11) BUN 24 H (6-23) mg/dl Creatinine 1.09 (0.6-1.4) mg/dl Est Cr Clr Drug Dosing 68.1 ml/min eGFR 73.47 BUN/Creatinine Ratio 22.0 H (10-20) Glucose 101 H (70-99(Fasting)) mg/dl Calcium 9.5 (8.6-10.3) mg/dl Total Bilirubin 0.5 (0.2-1.0) mg/dl AST 71 H (13-39) U/L ALT 18 (7-52) U/L Alkaline Phosphatase 245 H (34-104) U/L Total Protein 6.7 (6.0-8.3) gm/dl Albumin 3.7 (3.4-5.0) gm/dl Globulin 3.0 (2.5-4.0) gm/dl Albumin/Globulin Ratio 1.2 (0.9-2) Lipase 25 (11-82) U/L Urine Color Urine Appearance (Clear) Urine pH (4.5-7.5) Ur Specific [place] (1.000-1.030) Urine Protein (Negative) Urine Glucose (UA) (Negative) Urine Ketones (Negative) Urine Blood (Negative) Urine Nitrite (Negative) Urine Bilirubin (Negative) Urine Urobilinogen (Negative) Ur Leukocyte Esterase (Negative) Urine WBC (Auto) (0-5) /hpf Urine RBC (Auto) (0-2) /hpf U Hyaline Cast (Auto) (0-2) /lpf U Epithel Cells (Auto) (0-2) /hpf Urine Bacteria (Auto) (None Seen) Adenovirus (PCR) Not Detected (NotDetected) B. pertussis DNA (PCR) Not Detected (NotDetected) B.parapertussis DNA PCR Not Detected (NotDetected) C. pneumoniae DNA (PCR) Not Detected (NotDetected) Coronavirus OC43 (PCR) Not Detected (NotDetected) Coronavirus HKU1 (PCR) Not Detected (NotDetected) Coronavirus 229E (PCR) Not Detected (NotDetected) SARS-CoV-2 (PCR) Not Detected (NotDetected) Coronavirus NL63 (PCR) Not Detected (NotDetected) Human Metapneumovir PCR Not Detected (NotDetected) Influenza Type A (PCR) Not Detected (NotDetected) Influenza Type B (PCR) Not Detected (NotDetected) M. pneumoniae (PCR) Not Detected (NotDetected) Parainfluenza 1 (PCR) Not Detected (NotDetected) Parainfluenza 2 (PCR) Not Detected (NotDetected) Parainfluenza 3 (PCR) Not Detected (NotDetected) Parainfluenza 4 (PCR) Not Detected (NotDetected) RSV (PCR) Not Detected (NotDetected) Entero/Rhino (PCR) Not Detected (NotDetected) Blood Type A Negative Antibody Screen NEGATIVE 10/26/24 Range/Units 17:00 WBC (4.8-10.8) K/ul RBC (4.70-6.10) M/uL Hgb (14.0-18.0) g/dl Hct (42.0-52.0) % MCV (80.0-100.0) fL MCH (25.0-34.0) pg MCHC (32.0-36.0) g/dL RDW Std Deviation (36.4-46.3) fL RDW Coeff of Emmett (11.5-14.5) % Plt Count (130-400) K/uL MPV (9.4-12.4) fL Immature Gran % (Auto) % Neut % (Auto) % Lymph % (Auto) % [place] % (Auto) % Eos % (Auto) % Baso % (Auto) % Neut # (Auto) (1.40-6.50) K/uL Lymph # (Auto) (1.20-3.40) K/uL [place] # (Auto) (0.11-0.59) K/uL Eos # (Auto) (0.00-0.50) K/uL Baso # (Auto) (0.00-0.20) K/uL Immature Gran # (Auto) (0.01-0.20) K/uL Polychromasia PT (9.0-12.0) Seconds INR (0.9-1.1) APTT (21-31) Seconds PTT Ratio Sodium (136-145) mmol/L Potassium (3.5-5.1) mmol/L Chloride (98-107) mmol/L Carbon Dioxide (21-32) mmol/L Anion Gap (3-11) BUN (6-23) mg/dl Creatinine (0.6-1.4) mg/dl Est Cr Clr Drug Dosing ml/min eGFR BUN/Creatinine Ratio (10-20) Glucose (70-99(Fasting)) mg/dl Calcium (8.6-10.3) mg/dl Total Bilirubin (0.2-1.0) mg/dl AST (13-39) U/L ALT (7-52) U/L Alkaline Phosphatase (34-104) U/L Total Protein (6.0-8.3) gm/dl Albumin (3.4-5.0) gm/dl Globulin (2.5-4.0) gm/dl Albumin/Globulin Ratio (0.9-2) Lipase (11-82) U/L Urine Color Dark Yellow Urine Appearance Clear (Clear) Urine pH 5.5 (4.5-7.5) Ur Specific [place] 1.026 (1.000-1.030) Urine Protein 1+ H (Negative) Urine Glucose (UA) Negative (Negative) Urine Ketones 1+ H (Negative) Urine Blood Negative (Negative) Urine Nitrite Negative (Negative) Urine Bilirubin 1+ H (Negative) Urine Urobilinogen Negative (Negative) Ur Leukocyte Esterase Trace H (Negative) Urine WBC (Auto) 0-5 (0-5) /hpf Urine RBC (Auto) 3-5 H (0-2) /hpf U Hyaline Cast (Auto) 0-2 (0-2) /lpf U Epithel Cells (Auto) 0-2 (0-2) /hpf Urine Bacteria (Auto) None Seen (None Seen) Adenovirus (PCR) (NotDetected) B. pertussis DNA (PCR) (NotDetected) B.parapertussis DNA PCR (NotDetected) C. pneumoniae DNA (PCR) (NotDetected) Coronavirus OC43 (PCR) (NotDetected) Coronavirus HKU1 (PCR) (NotDetected) Coronavirus 229E (PCR) (NotDetected) SARS-CoV-2 (PCR) (NotDetected) Coronavirus NL63 (PCR) (NotDetected) Human Metapneumovir PCR (NotDetected) Influenza Type A (PCR) (NotDetected) Influenza Type B (PCR) (NotDetected) M. pneumoniae (PCR) (NotDetected) Parainfluenza 1 (PCR) (NotDetected) Parainfluenza 2 (PCR) (NotDetected) Parainfluenza 3 (PCR) (NotDetected) Parainfluenza 4 (PCR) (NotDetected) RSV (PCR) (NotDetected) Entero/Rhino (PCR) (NotDetected) Blood Type Antibody Screen Imaging Data Attestation: I personally reviewed and interpreted this imaging study as follows: My Impression: Chest x-ray -no acute infiltrate, failure, pneumothorax seen. Radiologist's Impression: Chest X-Ray 09/24/24 13:29 SINGLE VIEW CHEST CLINICAL HISTORY: Cough FINDINGS: An AP, portable, upright chest radiograph is compared to study dated 02/02/2019 and correlated with chest CT dated 04/10/2023. The examination is degraded by portable technique and patient rotation. The cardiomediastinal silhouette is unremarkable. Chronic interstitial thickening is similar to previous. There is mild bibasilar scarring/atelectasis. No airspace consolidation or large pleural effusion is identified. No pneumothorax is seen. The skeletal structures are osteopenic. The bony thorax is grossly intact. IMPRESSION: No active disease in the chest. ACT 112: Negative or not required by law. Electronically signed by: Jose David M.D. 09/24/2024 1:47 PM KUB X-Ray 09/24/24 18:04 KUB HISTORY: Acute generalized abdominal Vomiting, no BM; obstruction r/o COMPARISON: PET/CT 09/08/2024 FINDINGS: The bowel gas pattern is non-obstructive. Mild to moderate colonic fecal condition.. No renal calculi. No ureteral calculi. No pneumoperitoneum or pneumatosis. Skeletal metastasis better seen on comparison PET CT. Brachytherapy seeds of the prostate. Partially imaged ORIF hardware of the right femur. No fracture. IMPRESSION: 1. Nonobstructive bowel gas pattern. 2. Probable constipation. 3. Skeletal metastasis redemonstrated, better seen on the comparison PET/CT. ACT 112: Negative or not required by law. The above report was generated using voice recognition software. It may contain grammatical, syntax or spelling errors. Electronically signed by: Iam Alberto M.D. 09/24/2024 6:29 PM ECG Data Attestation: I personally reviewed and interpreted this ECG as follows: Indication: + weakness Rate (beats per minute): 80 Rhythm: + normal sinus ECG Intervals/blocks: + Normal QRS, + Normal QT and + Normal RI ECG [place]: + Normal ECG ST segments: + Normal ST segments ECG Findings: no PACs or no PVCs Comparison ECG Date: from (02/02/2019) MDM Narrative This patient comes in described above. He was placed in room C2 is had some rectal bleeding he is a complex medical history. On exam, he does have some external hemorrhoids and may have been bleeding from there but he certainly is at risk for other bleeding as well. He tells me he did have a colonic rupture years ago had an ostomy and reversal. He is followed by Dr. Monet in the cancer center has been feeling weak lately. IV access was established and he was hydrated with 500 cc IV normal saline bolus. multiple blood testing was obtained .he was reassessed frequently. He has remained hemodynamically stable. His hemoglobin is baseline at 10. His white count is elevated 15. he has been feeling weak lately but has no fever. He has no significant electrolyte or metabolic abnormality. Chest x-ray was clear and shows no acute infiltrate, failure, pneumothorax seen. COVID testing was negative. His blood may be coming from something rectally such as a hemorrhoid but it could also be coming higher up he is also been sick and weak and tired and has a white count and due to all of this I do think he needs to be admitted/observed. I did talk to Dr. Navarro who is covering for Dr. Monet and he agrees with observing the patient in the hospital. I did discuss case with Dr. Davis who is the [facility] hospitalist and he agrees and will admit/observe the patient for further inpatient treatment evaluation. Impression & Plan Acute GI bleeding, Elevated WBC count, Weakness, Prostate cancer metastatic to multiple sites Discharge Plan Visit Data Chief Complaint: Rectal Bleed Stated Complaint: RECTAL BLEEDING, VOMITING, CANCER ED Provider: Aroldo Rush Discharge Problem: Acute GI bleeding, Elevated WBC count, Weakness, Prostate cancer metastatic to multiple sites Forms Stand Alone Forms: My [facility] Prescriptions Prescriptions: No Action rosuvastatin [Crestor] 40 mg tablet 40 mg PO DAILY Lupron Depot (3 month) 22.5 mg syringe kit 22.5 mg IM .3 months Xgeva 120 mg/1.7 mL (70 mg/mL) solution 120 mg subcut MONTHLY aspirin 81 mg capsule 81 mg PO DAILY sertraline 50 mg Tablet 50 mg PO QPM Qty: 0 zolpidem [Ambien] 5 mg Tablet 5 mg PO HS PRN (Reason: Insomnia) Qty: 0 Patient Comments: NO USE FOR LAST SEVERAL MONTHS metoprolol tartrate 25 mg Tablet 25 mg PO BID Qty: 0 lisinopril 10 mg Tablet 10 mg PO QAM Qty: 0 nitroglycerin 0.4 mg tablet, sublingual 0.4 mg SL .DISSOLVE 1 TABLET UN PRN (Reason: Chest Pain) Patient Comments: NO USE FOR SEVERAL MONTHS docusate sodium [Colace] 100 mg capsule 100 mg PO BID PRN (Reason: constipation) Qty: 30 0RF ondansetron HCl 8 mg tablet 8 mg PO Q8H PRN (Reason: n/v) olanzapine 2.5 mg tablet 2.5 mg PO DIRECTED Referrals Referrals: Jeramie Gutierrez DO [Primary Care Provider] - Discharge Problem: Elevated WBC count Qualifiers: Leukocytosis type: unspecified Qualified Code(s): D72.829 - Elevated white blood cell count, unspecified
[2024-09-24 13:36] LABS: Hematocrit (blood only) 31.3 % (42.0-52.0); Hemoglobin 10.4 g/dl (14.0-18.0); Mean Corpuscular Hemoglobin 33.3 pg (25.0-34.0); Mean Corpuscular Hgb Conc 33.2 g/dL (32.0-36.0); Mean Corpuscular Volume 100.3 fL (80.0-100.0); Mean Platelet Volume 8.9 fL (9.4-12.4); Platelet Count 246 K/uL (130-400); RDW Coefficient of Variation 14.8 % (11.5-14.5); RDW Standard Deviation 54.5 fL (36.4-46.3); Red Blood Count 3.12 M/uL (4.70-6.10); White Blood Count 15.83 K/ul (4.8-10.8)
--- NOTE | 2024-09-24 13:48 | XRay Report ---
SINGLE VIEW CHEST CLINICAL HISTORY: Cough FINDINGS: An AP, portable, upright chest radiograph is compared to study dated 02/02/2019 and correlate d with chest CT dated 04/10/2023. The examination is degraded by portable technique and patient rotati on. The cardiomediastinal silhouette is unremarkable. Chronic interstitial thickening is similar to previous. There is mild bibasilar scarring/atelectasis. No airspace consolidation or large pleural ef fusion is identified. No pneumothorax is seen. The skeletal structures are osteopenic. The bony thora x is grossly intact. IMPRESSION: No active disease in the chest. ACT 112: Negative or not required by law. Electronically signed by: Jose David M.D. 09/24/2024 1:47 PM
[2024-09-24 13:53] LABS: Basophils # (auto) 0.04 K/uL (0.00-0.20); Basophils % (auto) 0.3 %; Eosinophils # (auto) 0.01 K/uL (0.00-0.50); Eosinophils % (auto) 0.1 %; Immature Granulocytes % (auto) 1.3 %; Lymphocytes # (auto) 0.23 K/uL (1.20-3.40); Lymphocytes % (auto) 1.5 %; Monocytes # (auto) 0.56 K/uL (0.11-0.59); Monocytes % (auto) 3.5 %; Neutrophils # (auto) 14.79 K/uL (1.40-6.50); Neutrophils % (auto) 93.3 %; Polychromasia 1+
[2024-09-24 13:58] LABS: Albumin Globulin Ratio 1.2 (0.9-2); Albumin Level 3.7 gm/dl (3.4-5.0); Bilirubin,Total 0.5 mg/dl (0.2-1.0); Calcium 9.5 mg/dl (8.6-10.3); Creatinine Clr Calc Pharmacy 68.1 ml/min; Potassium 4.1 mmol/L (3.5-5.1); Total Protein 6.7 gm/dl (6.0-8.3)
[2024-09-24] MEDS: SODIUM CHLORIDE 0.9% 500 ML IV ONE (14:09)
[2024-09-24 14:12] LABS: INR 1.3 (0.9-1.1); Partial Thromboplastin Time 26 Seconds (21-31)
[2024-09-24 14:52] LABS: Adenovirus PCR Not Detected (NotDetected); Bordetella parapertussis PCR Not Detected (NotDetected); Bordetella pertussis PCR Not Detected (NotDetected); Chlamydia pneumoniae PCR Not Detected (NotDetected); Coronavirus 229E PCR Not Detected (NotDetected); Coronavirus CoV-2 (COVID19)PCR Not Detected (NotDetected); Coronavirus HKU1 PCR Not Detected (NotDetected); Coronavirus NL63 PCR Not Detected (NotDetected); Coronavirus OC43PCR Not Detected (NotDetected); Human Metapneumovirus PCR Not Detected (NotDetected); Influenza A PCR Not Detected (NotDetected); Influenza B PCR Not Detected (NotDetected); Mycoplasma pneumoniae PCR Not Detected (NotDetected); Parainfluenza Virus 1 PCR Not Detected (NotDetected); Parainfluenza Virus 2 PCR Not Detected (NotDetected); Parainfluenza Virus 3 PCR Not Detected (NotDetected); Parainfluenza Virus 4 PCR Not Detected (NotDetected); Respiratory Syncytial VirusPCR Not Detected (NotDetected); Rhinovirus/Enterovirus PCR Not Detected (NotDetected)
--- NOTE | 2024-09-24 16:41 | History & Physical Report ---
Date of Service September 24, 2024 Assessment & Plan (1) Rectal bleed: Plan: BRB in toilet x 1 on the morning of 09/24 Hgb stable at 10.4 on arrival (around recent baseline) No prior history of GI bleeds Hx of hemorrhoids, but no prior episodes like this one; last colonoscopy >5y ago Concomitant episode of vomiting in the ED; KUB ordered to assess for obstructive pattern Pending KUB, will plan to make n.p.o. except for p.o. medications Protonix 40 mg IV x 1 IV antiemetics as needed Will spot check H&H overnight, then recheck with a.m. labs (2) Leukocytosis: Plan: Leukocytosis at 15.83 with a neutrophil predominance; afebrile WBC was also elevated around 16.41 three days prior Patient recently finished a course of levofloxacin x 7 days for presumed URI CXR without active disease UA ordered, pending Procalcitonin ordered, pending Unclear etiology; will defer additional antibiotics at this time Follow CBC (3) CAD (coronary artery disease): Plan: History of [place] in 2008 S/p CURT x 1 Despite rectal bleed, will continue aspirin (4) Prostate cancer metastatic to bone: Plan: Follows with CCP (5) HTN (hypertension): Plan: Continue metoprolol Hold lisinopril pending a.m. BP Plan Disposition: Obs -admit to MedSurg telemetry DNR/DNI N.p.o. for now then advance to clear liquid diet as tolerated PT PPx: Hold chemical DVT PPX in the setting of potential GI bleed; SCDs; okay to continue aspirin (h/o heart stent) History of Present Illness Chief Complaint: Rectal bleeding Primary Care Provider: DO Semaj Diamond is a 68-year-old male with PMH of prostate cancer with metastasis to bone, CAD, pulmonary embolism, and HTN. Presented on 09/24 for rectal bleeding that started around 3 AM. He reports that he had bright red blood in the toilet with dark clots; no stool. He reports he has occasionally had bright red blood in his stool, but never like this before. He does have a history of hemorrhoids. Patient did not take his regular morning medicine today; no recent change in medications. Patient manages his own medicine at home. He is currently undergoing treatment for his stage IV prostate cancer. Additionally, he endorses nausea and vomiting. He was supposed to have an infusion at the [facility] on for his chemotherapy, but this was canceled as the patient was feeling "rundown". He denies history of GI bleeds, or dark tarry stool. However, his last BM was several days ago. Patient reports that he has not been eating as much over the past few days. He does have a history of ruptured colon, resulting in ostomy and reversal. Patient is unsure when his last colonoscopy was, but it was many years ago (> 5 years). No sick contacts. He does have a productive cough and has had 1 for extended period of time now. Patient takes aspirin daily for history of a heart stent ([place] 15 years ago). He is a current tobacco everyday tobacco cigarette smoker; has recently and cutting down to 5 cigarettes/day. No recent alcohol use. He recently finished a course of levofloxacin x 7 days, which was given to him by his [facility] doctor out of concern for productive cough/pneumonia. Patient reports he has not had any bowel movements today or additional episodes of bright red blood in toilet. Patient's vitals are stable at time of admission. ED course: NSS 500 mL IV ROS: Patient endorses BRB in toilet this morning (no stool), chills, ZARATE, productive cough, nausea, and vomiting. Patient denies fever, night-sweats, dizziness/lightheadedness, AYALA, chest pain, SOB at rest, pleuritic CP, abdominal pain, blood in the urine, dysuria, burning with urination, new lower back pain, saddle anesthesia, or numbness/tingling in the legs. Allergies Allergy/AdvReac Type Severity Reaction Status Date / Time No Known Allergies Allergy Verified 04/04/24 09:12 Home Medications Medication Instructions Recorded Confirmed Type sertraline 50 mg tablet 50 mg PO QPM #0 tabs 10/27/12 09/24/24 History metoprolol tartrate 25 mg tablet 25 mg PO BID ##0 10/11/14 09/24/24 History zolpidem 5 mg tablet (Ambien) 5 mg PO HS PRN Insomnia #0 tabs 10/11/14 09/24/24 History lisinopril 10 mg tablet 10 mg PO QAM ##0 11/03/17 09/24/24 History nitroglycerin 0.4 mg sublingual 0.4 mg sublingual .DISSOLVE 1 06/14/19 09/24/24 History tablet TABLET UN PRN Chest Pain docusate sodium 100 mg capsule 100 mg PO BID PRN constipation #30 08/30/19 09/24/24 Rx (Colace) caps denosumab 120 mg/1.7 mL (70 mg/mL) 120 mg subcut MONTHLY 03/10/24 09/24/24 History subcutaneous solution (Xgeva) leuprolide (3 month) 22.5 mg (3 22.5 mg IM .3 months 03/10/24 09/24/24 History month) intramuscular syringe kit (Lupron Depot) rosuvastatin 40 mg tablet (Crestor) 40 mg PO DAILY 03/10/24 09/24/24 History aspirin 81 mg capsule 81 mg PO DAILY 03/28/24 09/24/24 History olanzapine 2.5 mg tablet 2.5 mg PO DIRECTED 09/24/24 09/24/24 History ondansetron HCl 8 mg tablet 8 mg PO Q8H PRN n/v 09/24/24 09/24/24 History Past Med/Surg History Problem List Leukocytosis Rectal bleed Prostate cancer metastatic to bone (Chronic 05/19/22) Prostate cancer (Chronic) Knee pain CAD (coronary artery disease) HTN (hypertension) Closed intertrochanteric fracture of right femur Hx pulmonary embolism Hx of fracture of femur DVT prophylaxis Fall Encounter for smoking cessation counseling Discharge planning issues Pre-operative cardiovascular examination Insomnia CAD (coronary artery disease) of artery bypass graft Anxiety Open right hip fracture Encounter for pre-operative examination Medical History History of embolism ? hx fat embolism s/p right leg fracture (2011)- not definitely diagnosed-- lovenox injections x short period of time; no issues since History of heart attack 2008 Heartburn occasional Prostate cancer History of diverticulitis 2011 HLD (hyperlipidemia) HTN (hypertension) CAD (coronary artery disease) s/p BMS to pLCX + PCI pLCX (2008)- follows with PCP (Dr. Melina Juares) Surgical History H/O exploratory laparotomy DONE TO VISUALIZE PROSTATE (UNABLE TO DUE PROSTATECTOMY D/T SCAR TISSUE FROM PREVIOUS SURGERY). History of appendectomy History of cardiac cath 2009= STENT X 1 History of colonoscopy History of hip surgery Right hip troch nail: 02/03/19: LMA#4 at [facility] History of surgery on extremity RIGHT LEG/+ HARDWARE H/O bilateral cataract extraction Hx of resection of small bowel + COLOSTOMY (SUBSEQUENT REVERSAL) + APPENDECTOMY DURING BOWEL RESECTION Family History Grandfather (Paternal) , at age 69 of heart issue No problems noted. Grandfather (Maternal) , age 68 cause unkown No problems noted. Grandmother (Maternal) , age 49 perhaps an aneurysm No problems noted. Grandmother (Paternal) , around age 69 of heart problem No problems noted. Father , age 77 of Parkinsons No problems noted. Mother Age: 95 No problems noted. Brother Age: 72 Prostate cancer Social History Smoking Status: Current every day smoker Tobacco Type: Cigarettes Cigarettes Per Day: 1/2 PPD x 35 years; Second Hand Exposure: No; Do You Dip or Chew Tobacco: No; Hx Alcohol Use: Yes Alcohol type: beer and wine Hx Substance Use: No Preferred Language: Peruvian Communication Ability: Effective Bearing Grinder Required: No Beliefs That Will Affect Care: None Current Living Situation: Spouse current occupational status: retired Feels Safe at Home: Yes Assistive Devices: Glasses Review of Systems Review of Systems: See HPI above Physical Exam Physical Exam: General: no acute distress; pleasant affect; at bedside; non-toxic appearing; frail appearing; cachectic; cooperative; SpO2 95% on RA HEENT: normocephalic, atraumatic; no scleral icterus; PERRLA w/ EOMs intact; vision and hearing grossly intact Neck: supple; no lymphadenopathy; trachea midline Skin: warm, dry without signs of tenting; no cyanosis; no rashes, bruising, lesions, or erythema noted CV: chest wall NTP; RRR; S1/S2 normal; no murmurs/rubs/gallops; pulses intact and symmetric at radial, DP, and PT Lungs: no acute respiratory distress; symmetrical chest wall expansion; bibasilar crackles noted in the lower lung godwin bilaterally ABD: Soft, NTP; BS present; no rebound/guarding; no distention MSK: no tics or fasciculations; no edema noted in the LEs b/l, nonerythematous Neuro: A&Ox3; normal mood and affect; fluent speech; no focal deficits; sensation grossly intact in the LEs b/l Results & Data Results & Data Vital Signs (Past 12 Hours) Vital Signs Temp Pulse Pulse Resp BP BP Pulse Ox 09/24/24 14:51 79 19 93 09/24/24 14:08 76 19 93 09/24/24 14:03 76 18 95 09/24/24 14:00 114/64 09/24/24 14:00 114/64 09/24/24 13:45 75 25 H 95 09/24/24 13:42 74 18 95 09/24/24 13:19 75 09/24/24 12:59 77 20 104/62 96 09/24/24 12:47 36.5 C 93 H 20 103/70 95 O2 Del Method 09/24/24 14:51 09/24/24 14:08 Room Air 09/24/24 14:03 09/24/24 14:00 09/24/24 14:00 09/24/24 13:45 09/24/24 13:42 09/24/24 13:19 09/24/24 12:59 Room Air 09/24/24 12:47 Room Air Laboratory Results Abnormal lab results 09/24/24 Range/Units 13:17 WBC 15.83 H (4.8-10.8) K/ul RBC 3.12 L (4.70-6.10) M/uL Hgb 10.4 L (14.0-18.0) g/dl Hct 31.3 L (42.0-52.0) % MCV 100.3 H (80.0-100.0) fL RDW Std Deviation 54.5 H (36.4-46.3) fL RDW Coeff of Emmett 14.8 H (11.5-14.5) % MPV 8.9 L (9.4-12.4) fL Neut # (Auto) 14.79 H (1.40-6.50) K/uL Lymph # (Auto) 0.23 L (1.20-3.40) K/uL PT 14.0 H (9.0-12.0) Seconds INR 1.3 H (0.9-1.1) BUN 24 H (6-23) mg/dl BUN/Creatinine Ratio 22.0 H (10-20) Glucose 101 H (70-99(Fasting)) mg/dl AST 71 H (13-39) U/L Alkaline Phosphatase 245 H (34-104) U/L Diagnostic Findings Chest X-Ray 09/24/24 13:29 SINGLE VIEW CHEST CLINICAL HISTORY: Cough FINDINGS: An AP, portable, upright chest radiograph is compared to study dated 02/02/2019 and correlated with chest CT dated 04/10/2023. The examination is degraded by portable technique and patient rotation. The cardiomediastinal silhouette is unremarkable. Chronic interstitial thickening is similar to previous. There is mild bibasilar scarring/atelectasis. No airspace consolidation or large pleural effusion is identified. No pneumothorax is seen. The skeletal structures are osteopenic. The bony thorax is grossly intact. IMPRESSION: No active disease in the chest. ACT 112: Negative or not required by law. Electronically signed by: Jose David M.D. 09/24/2024 1:47 PM ECG Additional Comments: ECG revealed normal sinus rhythm with sinus arrhythmia at 75 bpm; QTc 448 Code Status & VTE Plan Code Status DNR/DNI (discussed with patient and patient's /medical proxy at bedside) VTE Prophylaxis Plan VTE Prophylaxis will be ordered: Yes Supervising Physician Co-Signing Physician Notes Patient seen and examined, chart reviewed, case discussed with Matt Ramos PA-C and I agree with the assessment and plan as above except as otherwise noted Labs and images reviewed. I did discuss the possibility of EGD/colonoscopy with the patient in case GI is consulted and it is recommended. At this time, patient states that unless it would significantly change his overall condition, he would want to defer that. PG Care Time/CCT Total # of Minutes Spent Total Time Spent with Patient: Total time spent is greater than 50% in coordination of care (as documented) at patient's floor/unit and/or counseling patient: Coding [place] [address] INT INP/OBS CARE MIN Patient Type Established Medical Decision Making High Complexity Diagnoses Rectal bleed K62.5 Leukocytosis D72.829 CAD (coronary artery disease) I25.10 Prostate cancer metastatic to bone C61; C79.51 HTN (hypertension) I10
[2024-09-24] MEDS: PANTOprazole 40 MG/10 ML SYR IV ONE (18:02)
[2024-09-24 18:20] LABS: Appearance Urine Clear (Clear); Bacteria Urine Automated None Seen (None Seen); Bilirubin Urine 1+ (Negative); Blood Urine Negative (Negative); Cast Urine Automated 0-2 /lpf (0-2); Color Urine Dark Yellow; Epithelial Cell Urine Auto 0-2 /hpf (0-2); Glucose Urine UA Negative (Negative); Ketones Urine 1+ (Negative); Leukocyte Esterase Urine Trace (Negative); Nitrite Urine Negative (Negative); Protein Urine 1+ (Negative); Specific Gravity Urine 1.026 (1.000-1.030); Urobilinogen Urine Negative (Negative); WBC Urine Automated 0-5 /hpf (0-5); pH Urine 5.5 (4.5-7.5)
--- NOTE | 2024-09-24 18:30 | XRay Report ---
KUB HISTORY: Acute generalized abdominal Vomiting, no BM; obstruction r/o COMPARISON: PET/CT 09/08/2024 FINDINGS: The bowel gas pattern is non-obstructive. Mild to moderate colonic fecal condition.. No re nal calculi. No ureteral calculi. No pneumoperitoneum or pneumatosis. Skeletal metastasis better seen on comparison PET CT. Brachytherapy seeds of the prostate. Partially imaged ORIF hardware of the rig ht femur. No fracture. IMPRESSION: 1. Nonobstructive bowel gas pattern. 2. Probable constipation. 3. Skeletal metastasis redemonstrated, better seen on the comparison PET/CT. ACT 112: Negative or not required by law. The above report was generated using voice recognition software. It may contain grammatical, syntax o r spelling errors. Electronically signed by: Iam Alberto M.D. 09/24/2024 6:29 PM
[2024-09-24 18:51] LABS: Hematocrit (blood only) 27.9 % (42.0-52.0); Hemoglobin 9.4 g/dl (14.0-18.0)
[2024-09-24] MEDS ORDERED: ZOLPIDEM TARTRATE 5 MG TAB PO PRN (21:12)
[2024-09-24] MEDS: SERTRALINE HCL 50 MG TABLET PO SCH (21:46)
[2024-09-24] MEDS: METOPROLOL TARTRATE 25 MG TAB PO SCH (21:46)
[2024-09-24] MEDS: ONDANSETRON INJ 2 MG/ML 2 ML VIAL IV PRN (22:21)
[2024-09-25 00:28] LABS: Hematocrit (blood only) 29.1 % (42.0-52.0); Hemoglobin 9.6 g/dl (14.0-18.0); Mean Corpuscular Hemoglobin 33.6 pg (25.0-34.0); Mean Corpuscular Volume 101.7 fL (80.0-100.0); Mean Platelet Volume 9.1 fL (9.4-12.4); Platelet Count 228 K/uL (130-400); RDW Coefficient of Variation 14.9 % (11.5-14.5); Red Blood Count 2.86 M/uL (4.70-6.10); White Blood Count 19.47 K/ul (4.8-10.8)
[2024-09-25 03:16] VITALS: O2SAT 93
[2024-09-25 06:43] LABS: Hemoglobin 9.3 g/dl (14.0-18.0); Mean Corpuscular Hemoglobin 33.2 pg (25.0-34.0); Mean Corpuscular Hgb Conc 33.2 g/dL (32.0-36.0); Platelet Count 234 K/uL (130-400); RDW Standard Deviation 55.3 fL (36.4-46.3); White Blood Count 17.43 K/ul (4.8-10.8)
[2024-09-25 07:10] LABS: BUN Creatinine Ratio 22.3 (10-20); Calcium 8.8 mg/dl (8.6-10.3); Creatinine Clr Calc Pharmacy 72.1 ml/min; Magnesium 2.1 mg/dl (1.7-2.4); Potassium 4.6 mmol/L (3.5-5.1)
--- NOTE | 2024-09-25 07:29 | Electrocardiogram Report ---
Test Reason : Blood Pressure : */* mmHG Vent. Rate : 75 BPM Atrial Rate : 75 BPM P-R Int : 158 ms QRS Dur : 72 ms QT Int : 402 ms P-R-T Axes : 91 39 54 degrees QTcB Int : 448 ms Normal sinus rhythm with sinus arrhythmia Low voltage QRS Borderline ECG When compared with ECG of 02-Feb-2019 08:34, Non-specific change in ST segment in Anterior leads Confirmed by Naveen Butcher ([id number]) on 09/25/2024 7:28:53 AM Referred By: REFERRED SELF Confirmed By: Naveen Butcher
[2024-09-25 08:22] VITALS: RESP 16; TEMP 98.1
[2024-09-25] MEDS: ROSUVASTATIN CALCIUM 20 MG TAB PO SCH (08:50)
[2024-09-25 09:01] LABS: Basophils # (auto) 0.04 K/uL (0.00-0.20); Basophils % (auto) 0.2 %; Eosinophils # (auto) 0.01 K/uL (0.00-0.50); Eosinophils % (auto) 0.1 %; Immature Granulocytes # (auto) 0.19 K/uL (0.01-0.20); Immature Granulocytes % (auto) 1.1 %; Lymphocytes # (auto) 0.23 K/uL (1.20-3.40); Lymphocytes % (auto) 1.3 %; Monocytes # (auto) 0.89 K/uL (0.11-0.59); Monocytes % (auto) 5.1 %; Neutrophils # (auto) 16.07 K/uL (1.40-6.50); Neutrophils % (auto) 92.2 %; RBC Morphology Unremarkable
[2024-09-25 10:25] VITALS: BP 126/76; PULSE 80
--- NOTE | 2024-09-25 10:46 | Discharge Summary ---
Date of Service September 25, 2024 Admission HPI Per Admitting Provider Semaj is a 68-year-old male with PMH of prostate cancer with metastasis to bone, CAD, pulmonary embolism, and HTN. Presented on 09/24 for rectal bleeding that started around 3 AM. He reports that he had bright red blood in the toilet with dark clots; no stool. He reports he has occasionally had bright red blood in his stool, but never like this before. He does have a history of hemorrhoids. Patient did not take his regular morning medicine today; no recent change in medications. Patient manages his own medicine at home. He is currently undergoing treatment for his stage IV prostate cancer. Additionally, he endorses nausea and vomiting. He was supposed to have an infusion at the [facility] on for his chemotherapy, but this was canceled as the patient was feeling "rundown". He denies history of GI bleeds, or dark tarry stool. However, his last BM was several days ago. Patient reports that he has not been eating as much over the past few days. He does have a history of ruptured colon, resul ting in ostomy and reversal. Patient is unsure when his last colonoscopy was, but it was many years ago (> 5 years). No sick contacts. He does have a productive cough and has had 1 for extended period of time now. Patient takes aspirin daily for history of a heart stent ([place] 15 years ago). He is a current tobacco everyday tobacco cigarette smoker; has recently and cutting down to 5 cigarettes/day. No recent alcohol use. He recently finished a course of levofloxacin x 7 days, which was given to him by his [facility] doctor out of concern for productive cough/pneumonia. Patient reports he has not had any bowel movements today or additional episodes of bright red blood in toilet. Patient's vitals are stable at time of admission. ED course: NSS 500 mL IV ROS: Patient endorses BRB in toilet this morning (no stool), chills, ZARATE, productive cough, nausea, and vomiting. Patient denies fever, night-sweats, dizziness/lightheadedness, AYALA, chest pain, SOB at rest, pleuritic CP, abdominal pain, blood in the urine, dysuria, burning with urination, new lower back pain, saddle anesthesia, or numbness/tingling in the legs. Admission Exam (Per Admitting) Constitutional The patient is awake, alert and oriented 3, well developed and well nourished, normocephalic and atraumatic, lying in bed and in no acute distress. HEENT--PERRL, EOMI, mucous membranes and oropharynx mildly dry Neck--supple. No JVD. No bruits. Thyroid normal, trachea midline, no adenopathy. Heart--normal S1 and S2. No murmurs, rubs or gallops. Lungs--clear bilaterally, no respiratory distress, no accessory muscle use. Abdomen--normal bowel sounds and soft. Extremities--no cyanosis or clubbing. No edema. Dermatologic--normal skin turgor, normal color, no abnormal lymph nodes, no rash. Neurologic--cranial nerves II through XII grossly intact. Rheumatologic--normal range of motion. Psychiatric--normal affect. Discharge Data Consultations 09/24/24 16:42 ED Decision to Admit Stat Hospital Course (1) Rectal bleed: BRB prito to presentation Hgb stable at 10.4 on arrival (around recent baseline) Hx of hemorrhoids, but no prior episodes like this one; last colonoscopy >5y ago No more bleeds overnight, stool did not have blood Patient expressed a desire to be discharged (2) Leukocytosis: Leukocytosis at 15.83 with a neutrophil predominance; afebrile WBC was also elevated around 16.41 three days prior Patient recently finished a course of levofloxacin x 7 days for presumed URI CXR without active disease UA ordered, pending Procalcitonin ordered, pending Unclear etiology; will defer additional antibiotics at this time Follow CBC (3) CAD (coronary artery disease): History of [place] in 2008 S/p CURT x 1 Despite rectal bleed, will continue aspirin (4) Prostate cancer metastatic to bone: Follows with CCP (5) HTN (hypertension): Continue metoprolol Hold lisinopril pending a.m. BP Plan Disposition: d/c home DNR/DNI N.p.o. for now then advance to clear liquid diet as tolerated PT PPx: Hold chemical DVT PPX in the setting of potential GI bleed; SCDs; okay to continue aspirin (h/o heart stent) Coding Level of Care Code 82663 INP/OBS DISCH >30 MIN Diagnoses Rectal bleed K62.5 Leukocytosis D72.829 CAD (coronary artery disease) I25.10 Prostate cancer metastatic to bone C61; C79.51 HTN (hypertension) I10 Time Spent (min) 35
== END 2024-09-25 11:08 | disposition home or self-care (01) ==
LOC: ED 12:45 → 2N 12:45 → SUATTDRO 18:10 → 2N 20:55